=== PATIENT | male | born 1940 | race Caucasian/White ===

== ENCOUNTER 2017-07-02 11:10 | Inpatient (IN) | payer MEDICARE, OTHER ==
[~2017-07-02] VITALS: Ht 167.6 cm; Wt 79.9 kg
[~2017-07-02 11:10] MED LIST: ACET325 PO; ALBU90OI6 INH; ATOR20 PO; BISA10S PR; BUDE6HFA INH; CALCNI; CEPH500 PO; Docusate Sodiu1 EACH PO; GAVILAX17 GM PO; HYDCHL25 PO; Keflex500 MG PO; LEVFLO500 PO; METCAR500 PO; Milk Of Ma400 MG/5 M PO; OMEPRAZOLE CAP 20M; OMEPRAZOLE MAGN20 MG PO; ONDA4 PO; OXYACE5T PO; OXYC1TAB11; OXYC5 PO; PRAV20; PRAV20 PO; Percocet 5-3251 EACH PO; Prilosec Otc20 MG PO; TIOT18 INH
[2017-07-02 12:00] LABS: BASOPHILS ABSOLUTE AUTO 0.02 K/mm3 (0.00-0.23); BASOPHILS PERCENT AUTO 0 % (0-2); EOSINOPHILS ABSOLUTE AUTO 0.01 K/mm3 (0.00-0.68); EOSINOPHILS PERCENT AUTO 0 % (0-6); Hematocrit 40.2 % (37.0-53.0); Hemoglobin 13.9 g/dL (13.5-17.5); IMMATURE GRAN ABSOLUTE AUTO 0.04 K/mm3 (0.00-0.10); IMMATURE GRAN PERCENT AUTO 0 % (0-1); LYMPHOCYTES ABSOLUTE AUTO 1.72 K/mm3 (0.84-5.20); LYMPHOCYTES PERCENT AUTO 11 % (21-46); MONOCYTES ABSOLUTE AUTO 1.83 K/mm3 (0.16-1.47); MONOCYTES PERCENT AUTO 12 % (4-13); Mean Corpuscular HGB Conc 34.6 g/dL (31.5-36.5); Mean Corpuscular Volume 96 fL (80-100); Mean Platelet Volume 9.7 fL (9.1-12.4); NEUTROPHILS ABSOLUTE AUTO 12.17 K/mm3 (1.96-9.15); NEUTROPHILS PERCENT AUTO 77 % (41-73); Platelet Count 272 K/mm3 (150-400); RDW Coefficient Variation 12.7 % (11.7-14.2); RDW Standard Deviation 44.1 fL (35.1-46.3); Red Blood Cell Count 4.21 M/mm3 (4.30-5.90); White Blood Cell Count 15.79 K/mm3 (4.00-11.30)
[2017-07-02] MEDS ORDERED: AMLO5 PO (12:08)
[2017-07-02 12:16] LABS: Alanine Aminotransfer (ALT/SGP 17 U/L (12-78); Albumin, Blood 2.5 g/dL (3.4-5.0); Albumin/Globulin Ratio 0.5 (0.8-1.8); Alk Phos 135 U/L (50-136); Anion Gap 11 mmol/L (6-16); Aspartate Aminotrans (AST/SGOT 16 U/L (12-37); Bilirubin, Total 1.3 mg/dL (0.1-1.0); Blood Urea Nitrogen 25 mg/dL (8-24); Bun/Creatinine Ratio 26.3 (12.0-20.0); CO2, Blood 24 mmol/L (21-32); Chloride, Blood 94 mmol/L (98-108); Creatinine, Blood 0.95 mg/dL (0.60-1.20); Globulin, Blood 5.1 g/dL (2.2-4.0); Glomerular Filtration Rate >60 (60-); Glucose, Blood 119 mg/dL (70-99); Potassium, Blood 4.2 mmol/L (3.5-5.5); Sodium, Blood 129 mmol/L (136-145); Total Protein, Blood 7.6 g/dL (6.4-8.2)
[2017-07-02 14:12] LABS: Source, Urine Clean Catch
[2017-07-02 14:17] LABS: Blood, Urine Neg (Neg); Glucose Qualitative, Urine Neg (Neg); Ketones, Urine 2+ (Neg); Leukocyte Esterase, Urine 1+ (Neg); Nitrite, Urine Neg (Neg); Protein, Urine 2+ (Neg); Urobilinogen, Urine 1+ (Normal)
[2017-07-02 14:31] LABS: Appearance, Urine Hazy (Clear); Bilirubin, Urine 1+ (Neg); Color, Urine Amber (P-Yellow)
[2017-07-02 14:33] LABS: Red Blood Cells, Urine 0-2 /hpf (0-2)
[2017-07-02 14:34] LABS: Bacteria Few /hpf; Squamous Epithelial Cells Few /hpf (Few)
[2017-07-02 18:22] LABS: International Normalized Ratio 1.15
[2017-07-03 05:29] LABS: BASOPHILS ABSOLUTE AUTO 0.01 K/mm3 (0.00-0.23); BASOPHILS PERCENT AUTO 0 % (0-2); EOSINOPHILS ABSOLUTE AUTO 0.01 K/mm3 (0.00-0.68); EOSINOPHILS PERCENT AUTO 0 % (0-6); Hematocrit 35.1 % (37.0-53.0); Hemoglobin 12.1 g/dL (13.5-17.5); IMMATURE GRAN ABSOLUTE AUTO 0.04 K/mm3 (0.00-0.10); IMMATURE GRAN PERCENT AUTO 0 % (0-1); LYMPHOCYTES ABSOLUTE AUTO 1.68 K/mm3 (0.84-5.20); LYMPHOCYTES PERCENT AUTO 14 % (21-46); MONOCYTES ABSOLUTE AUTO 1.64 K/mm3 (0.16-1.47); MONOCYTES PERCENT AUTO 14 % (4-13); Mean Corpuscular HGB 32.9 pg (26.0-34.0); Mean Corpuscular HGB Conc 34.5 g/dL (31.5-36.5); Mean Corpuscular Volume 95 fL (80-100); Mean Platelet Volume 9.9 fL (9.1-12.4); NEUTROPHILS ABSOLUTE AUTO 8.69 K/mm3 (1.96-9.15); NEUTROPHILS PERCENT AUTO 72 % (41-73); Platelet Count 259 K/mm3 (150-400); RDW Coefficient Variation 12.7 % (11.7-14.2); RDW Standard Deviation 43.8 fL (35.1-46.3); Red Blood Cell Count 3.68 M/mm3 (4.30-5.90); White Blood Cell Count 12.07 K/mm3 (4.00-11.30)
[2017-07-03 05:59] LABS: Alanine Aminotransfer (ALT/SGP 14 U/L (12-78); Albumin/Globulin Ratio 0.5 (0.8-1.8); Alk Phos 106 U/L (50-136); Anion Gap 8 mmol/L (6-16); Aspartate Aminotrans (AST/SGOT 18 U/L (12-37); Bilirubin, Total 0.8 mg/dL (0.1-1.0); Blood Urea Nitrogen 19 mg/dL (8-24); Bun/Creatinine Ratio 29.1 (12.0-20.0); CO2, Blood 24 mmol/L (21-32); Chloride, Blood 100 mmol/L (98-108); Creatinine, Blood 0.65 mg/dL (0.60-1.20); Globulin, Blood 4.4 g/dL (2.2-4.0); Glomerular Filtration Rate >60 (60-); Glucose, Blood 101 mg/dL (70-99); Sodium, Blood 132 mmol/L (136-145); Total Protein, Blood 6.4 g/dL (6.4-8.2)
[2017-07-03 18:48] LABS: Vancomycin, Trough 5.8 ug/mL (5.0-10.0)
[2017-07-04 04:56] LABS: BASOPHILS ABSOLUTE AUTO 0.01 K/mm3 (0.00-0.23); BASOPHILS PERCENT AUTO 0 % (0-2); EOSINOPHILS ABSOLUTE AUTO 0.05 K/mm3 (0.00-0.68); EOSINOPHILS PERCENT AUTO 1 % (0-6); Hematocrit 33.7 % (37.0-53.0); Hemoglobin 11.5 g/dL (13.5-17.5); IMMATURE GRAN ABSOLUTE AUTO 0.01 K/mm3 (0.00-0.10); IMMATURE GRAN PERCENT AUTO 0 % (0-1); LYMPHOCYTES ABSOLUTE AUTO 1.61 K/mm3 (0.84-5.20); LYMPHOCYTES PERCENT AUTO 18 % (21-46); MONOCYTES ABSOLUTE AUTO 0.91 K/mm3 (0.16-1.47); MONOCYTES PERCENT AUTO 10 % (4-13); Mean Corpuscular HGB 32.7 pg (26.0-34.0); Mean Corpuscular HGB Conc 34.1 g/dL (31.5-36.5); Mean Corpuscular Volume 96 fL (80-100); Mean Platelet Volume 9.6 fL (9.1-12.4); NEUTROPHILS ABSOLUTE AUTO 6.53 K/mm3 (1.96-9.15); NEUTROPHILS PERCENT AUTO 72 % (41-73); Platelet Count 301 K/mm3 (150-400); RDW Coefficient Variation 12.8 % (11.7-14.2); RDW Standard Deviation 44.5 fL (35.1-46.3); Red Blood Cell Count 3.52 M/mm3 (4.30-5.90); White Blood Cell Count 9.12 K/mm3 (4.00-11.30)
[2017-07-04 05:28] LABS: Alanine Aminotransfer (ALT/SGP 23 U/L (12-78); Albumin, Blood 1.8 g/dL (3.4-5.0); Albumin/Globulin Ratio 0.4 (0.8-1.8); Alk Phos 106 U/L (50-136); Anion Gap 9 mmol/L (6-16); Aspartate Aminotrans (AST/SGOT 30 U/L (12-37); Bilirubin, Total 0.6 mg/dL (0.1-1.0); Blood Urea Nitrogen 16 mg/dL (8-24); Bun/Creatinine Ratio 26.4 (12.0-20.0); CO2, Blood 24 mmol/L (21-32); Calcium, Blood 7.9 mg/dL (8.5-10.1); Chloride, Blood 101 mmol/L (98-108); Creatinine, Blood 0.61 mg/dL (0.60-1.20); Globulin, Blood 4.4 g/dL (2.2-4.0); Glomerular Filtration Rate >60 (60-); Glucose, Blood 99 mg/dL (70-99); Potassium, Blood 3.8 mmol/L (3.5-5.5); Sodium, Blood 134 mmol/L (136-145); Total Protein, Blood 6.2 g/dL (6.4-8.2)
[2017-07-04 05:42] LABS: Uric Acid, Blood 3.7 mg/dL (3.5-7.2)
[2017-07-04 11:45] LABS: Vancomycin, Trough 14.8 ug/mL (5.0-10.0)
[2017-07-05 06:06] LABS: Alanine Aminotransfer (ALT/SGP 30 U/L (12-78); Albumin, Blood 1.9 g/dL (3.4-5.0); Albumin/Globulin Ratio 0.5 (0.8-1.8); Alk Phos 107 U/L (50-136); Anion Gap 8 mmol/L (6-16); Aspartate Aminotrans (AST/SGOT 36 U/L (12-37); Bilirubin, Total 0.4 mg/dL (0.1-1.0); Blood Urea Nitrogen 15 mg/dL (8-24); Bun/Creatinine Ratio 26.5 (12.0-20.0); CO2, Blood 24 mmol/L (21-32); Chloride, Blood 101 mmol/L (98-108); Creatinine, Blood 0.57 mg/dL (0.60-1.20); Globulin, Blood 4.2 g/dL (2.2-4.0); Glomerular Filtration Rate >60 (60-); Glucose, Blood 97 mg/dL (70-99); Potassium, Blood 3.9 mmol/L (3.5-5.5); Sodium, Blood 133 mmol/L (136-145); Total Protein, Blood 6.1 g/dL (6.4-8.2)
[2017-07-06 05:47] LABS: BASOPHILS ABSOLUTE AUTO 0.02 K/mm3 (0.00-0.23); BASOPHILS PERCENT AUTO 0 % (0-2); EOSINOPHILS ABSOLUTE AUTO 0.15 K/mm3 (0.00-0.68); EOSINOPHILS PERCENT AUTO 3 % (0-6); Hematocrit 36.5 % (37.0-53.0); Hemoglobin 12.2 g/dL (13.5-17.5); IMMATURE GRAN PERCENT AUTO 0 % (0-1); LYMPHOCYTES PERCENT AUTO 24 % (21-46); MONOCYTES ABSOLUTE AUTO 0.86 K/mm3 (0.16-1.47); MONOCYTES PERCENT AUTO 17 % (4-13); Mean Corpuscular HGB 32.9 pg (26.0-34.0); Mean Corpuscular HGB Conc 33.4 g/dL (31.5-36.5); Mean Corpuscular Volume 98 fL (80-100); Mean Platelet Volume 9.3 fL (9.1-12.4); NEUTROPHILS ABSOLUTE AUTO 2.83 K/mm3 (1.96-9.15); NEUTROPHILS PERCENT AUTO 56 % (41-73); Platelet Count 332 K/mm3 (150-400); RDW Coefficient Variation 12.8 % (11.7-14.2); RDW Standard Deviation 46.4 fL (35.1-46.3); Red Blood Cell Count 3.71 M/mm3 (4.30-5.90); White Blood Cell Count 5.06 K/mm3 (4.00-11.30)
[2017-07-06 06:16] LABS: Alanine Aminotransfer (ALT/SGP 37 U/L (12-78); Albumin/Globulin Ratio 0.5 (0.8-1.8); Alk Phos 112 U/L (50-136); Anion Gap 8 mmol/L (6-16); Aspartate Aminotrans (AST/SGOT 43 U/L (12-37); Bilirubin, Total 0.4 mg/dL (0.1-1.0); Blood Urea Nitrogen 12 mg/dL (8-24); Bun/Creatinine Ratio 17.9 (12.0-20.0); CO2, Blood 26 mmol/L (21-32); Calcium, Blood 8.4 mg/dL (8.5-10.1); Chloride, Blood 99 mmol/L (98-108); Creatinine, Blood 0.67 mg/dL (0.60-1.20); Globulin, Blood 4.3 g/dL (2.2-4.0); Glomerular Filtration Rate >60 (60-); Glucose, Blood 90 mg/dL (70-99); Potassium, Blood 3.9 mmol/L (3.5-5.5); Sodium, Blood 133 mmol/L (136-145); Total Protein, Blood 6.3 g/dL (6.4-8.2)
[2017-07-09 05:24] LABS: BASOPHILS ABSOLUTE AUTO 0.01 K/mm3 (0.00-0.23); BASOPHILS PERCENT AUTO 0 % (0-2); EOSINOPHILS ABSOLUTE AUTO 0.19 K/mm3 (0.00-0.68); EOSINOPHILS PERCENT AUTO 4 % (0-6); Hematocrit 37.5 % (37.0-53.0); Hemoglobin 12.3 g/dL (13.5-17.5); IMMATURE GRAN ABSOLUTE AUTO 0.02 K/mm3 (0.00-0.10); IMMATURE GRAN PERCENT AUTO 1 % (0-1); LYMPHOCYTES ABSOLUTE AUTO 1.44 K/mm3 (0.84-5.20); LYMPHOCYTES PERCENT AUTO 33 % (21-46); MONOCYTES PERCENT AUTO 14 % (4-13); Mean Corpuscular HGB 32.2 pg (26.0-34.0); Mean Corpuscular HGB Conc 32.8 g/dL (31.5-36.5); Mean Corpuscular Volume 98 fL (80-100); Mean Platelet Volume 9.1 fL (9.1-12.4); NEUTROPHILS ABSOLUTE AUTO 2.15 K/mm3 (1.96-9.15); NEUTROPHILS PERCENT AUTO 49 % (41-73); Platelet Count 334 K/mm3 (150-400); RDW Coefficient Variation 12.9 % (11.7-14.2); RDW Standard Deviation 46.6 fL (35.1-46.3); Red Blood Cell Count 3.82 M/mm3 (4.30-5.90); White Blood Cell Count 4.41 K/mm3 (4.00-11.30)
[2017-07-09 05:59] LABS: Alanine Aminotransfer (ALT/SGP 38 U/L (12-78); Albumin, Blood 2.1 g/dL (3.4-5.0); Albumin/Globulin Ratio 0.5 (0.8-1.8); Alk Phos 102 U/L (50-136); Anion Gap 8 mmol/L (6-16); Aspartate Aminotrans (AST/SGOT 47 U/L (12-37); Bilirubin, Total 0.3 mg/dL (0.1-1.0); Blood Urea Nitrogen 12 mg/dL (8-24); Bun/Creatinine Ratio 19.3 (12.0-20.0); CO2, Blood 26 mmol/L (21-32); Chloride, Blood 101 mmol/L (98-108); Creatinine, Blood 0.62 mg/dL (0.60-1.20); Globulin, Blood 3.9 g/dL (2.2-4.0); Glomerular Filtration Rate >60 (60-); Glucose, Blood 83 mg/dL (70-99); Potassium, Blood 3.6 mmol/L (3.5-5.5); Sodium, Blood 135 mmol/L (136-145)
== END 2017-07-09 13:55 | DRG 871 ==
LOC: ER 11:10 → MEDS 11:11 → ENPENDDIS 07-09 12:54 → MEDS 07-09 13:55
PROVIDERS: Emergency Medicine; Internal Medicine; Internal Medicine Endocrinology, Diabetes & Metabolism
PROC: 3E0234Z Introduction of Serum, Toxoid and Vaccine into Muscle, Percutaneous Approach (ICD-10-PCS; principal; 2017-07-03)
DX: A41.9 Sepsis, unspecified organism (principal); G93.41 Metabolic encephalopathy; S32.431A Displaced fracture of anterior column [iliopubic] of right acetabulum, initial encounter for closed fracture; E86.9 Volume depletion, unspecified; J44.9 Chronic obstructive pulmonary disease, unspecified; N39.0 Urinary tract infection, site not specified; S32.591A Other specified fracture of right pubis, initial encounter for closed fracture; E87.1 Hypo-osmolality and hyponatremia; B34.9 Viral infection, unspecified; Z23 Encounter for immunization; I10 Essential (primary) hypertension; E78.5 Hyperlipidemia, unspecified; K21.9 Gastro-esophageal reflux disease without esophagitis; M81.0 Age-related osteoporosis without current pathological fracture; F17.210 Nicotine dependence, cigarettes, uncomplicated
CPT/HCPCS: 20610; 36415; 71045; 73110; 73562-RT; 80053; 80202; 81001; 83605; 84550; 85025; 85610; 85651; 85730; 86141; 87040; 87070; 87075; 87086; 87205; 89051; 89060; 94640; 94760; 96361; 96372; 96374; 97110; 97163; 97530; 99283; 99285; C1751; G8978; G8979; J0696; J1170; J1650; J3370; J3480; J7030; J7050

== ENCOUNTER 2019-04-13 18:17 | Emergency (ER) | payer MEDICARE, OTHER ==
[~2019-04-13] VITALS: Ht 167.6 cm; Wt 108.9 kg
[~2019-04-13 18:17] MED LIST changes: +AMLO5 PO
[2019-04-13] MEDS ORDERED: Roxicodone5 MG PO (19:42)
== END 2019-04-13 20:10 | disposition home or self-care (01) ==
LOC: ER 18:17
DX: M25.552 Pain in left hip (principal); J44.9 Chronic obstructive pulmonary disease, unspecified; I10 Essential (primary) hypertension; E78.5 Hyperlipidemia, unspecified; F17.210 Nicotine dependence, cigarettes, uncomplicated
CPT/HCPCS: 71046; 73502; 96374; 96376; 99283-25; A9270; J1170

== ENCOUNTER 2019-07-01 06:46 | Day surgery (SDC) | payer MEDICARE, OTHER ==
[~2019-07-01] VITALS: Ht 162.6 cm; Wt 86.8 kg
[~2019-07-01 06:46] MED LIST changes: +ALEN70 PO; +ALFUZOSIN HCL10 MG PO; +ALLERCLEAR D-11 EACH PO; +ASTHALIN INH; +BROMELAINS500 MG PO; +BUDESONIDE NEB; +Brovana15 MCG/2 M INH; +Roxicodone5 MG PO; +[UNRECOGNIZED DRUG - OTHER] INH
--- NOTE | 2019-07-01 07:34 | NUR ---
History, Chart, Medications and Allergies reviewed before start of procedure. Patient confirms NPO status since midnight except for black coffee at 0430 this morning.
--- NOTE | 2019-07-01 07:36 | NUR ---
Patient States Post-Procedure ride home has been arranged with his .
--- NOTE | 2019-07-01 08:03 | NUR ---
0755- LUNGS DIMINISHED T/O WITH EXP. WHEEZING AUSCULTATED T/O. DR. BONILLA NOTIFIED, ORDER FOR DUONEB IN PREOP.
--- NOTE | 2019-07-01 11:06 | NUR ---
Patient up to Ambulate independently. Gait steady. History, Chart, Medications and Allergies reviewed before start of procedure. Discharge instructions reviewed with patient. Patient verbalizes understanding. Copy given to patient to take home. Discharged via wheelchair to private car for ride home. ABDOMINAL BLINDER PLACED
== END 2019-07-01 22:42 | disposition home or self-care (01) ==
LOC: ORSCMMR 06:46 → ORD 08:30 → ORSCMMR 22:42
PROVIDERS: Surgery
PROC: 0WUF0JZ Supplement Abdominal Wall with Synthetic Substitute, Open Approach (ICD-10-PCS; principal; 2019-07-01 08:30)
DX: K42.9 Umbilical hernia without obstruction or gangrene (principal); I10 Essential (primary) hypertension; J44.9 Chronic obstructive pulmonary disease, unspecified; Z87.891 Personal history of nicotine dependence; Z99.81 Dependence on supplemental oxygen; Z79.899 Other long term (current) drug therapy
CPT/HCPCS: C1781; J0690; J1100; J2250; J2370; J2405; J2704; J3010; J7120

== ENCOUNTER → 2019-11-11 | Outpatient (CLI) | payer MEDICARE, OTHER | END | disposition home or self-care (01) | LOC: LAB SHORT 15:42 → PLD 15:42 | DX: L72.0 Epidermal cyst (principal) | CPT/HCPCS: 88304 ==

== ENCOUNTER → 2021-05-06 | Outpatient (CLI) | payer MEDICARE, OTHER ==
[~2021-05-06] MED LIST changes: +ALBU90OI INH; +Prednisone20 MG PO
== END | disposition home or self-care (01) ==
LOC: LAB SHORT 15:57 → PLD 15:57
DX: M67.449 Ganglion, unspecified hand (principal)
CPT/HCPCS: 88304

== ENCOUNTER → 2022-01-30 | Outpatient (CLI) | payer MEDICARE | END | disposition home or self-care (01) | LOC: LAB SHORT 08:07 → PLD 08:07 | DX: D22.5 Melanocytic nevi of trunk (principal); L82.1 Other seborrheic keratosis | CPT/HCPCS: 88305 ==

== ENCOUNTER 2022-06-30 19:56 | Inpatient (IN) | payer BC ==
[~2022-06-30] VITALS: Ht 162.6 cm; Wt 84.2 kg
[2022-06-30 20:17] LABS: BASOPHILS ABSOLUTE AUTO 0.03 K/mm3 (0.00-0.23); BASOPHILS PERCENT AUTO 0 % (0-2); EOSINOPHILS ABSOLUTE AUTO 0.58 K/mm3 (0.00-0.68); EOSINOPHILS PERCENT AUTO 7 % (0-6); Hematocrit 40.1 % (37.0-53.0); Hemoglobin 12.9 g/dL (13.5-17.5); IMMATURE GRAN ABSOLUTE AUTO 0.01 K/mm3 (0.00-0.10); IMMATURE GRAN PERCENT AUTO 0 % (0-1); LYMPHOCYTES ABSOLUTE AUTO 1.94 K/mm3 (0.84-5.20); LYMPHOCYTES PERCENT AUTO 25 % (21-46); MONOCYTES ABSOLUTE AUTO 0.72 K/mm3 (0.16-1.47); MONOCYTES PERCENT AUTO 9 % (4-13); Mean Corpuscular HGB 32.7 pg (26.0-34.0); Mean Corpuscular HGB Conc 32.2 g/dL (31.5-36.5); Mean Corpuscular Volume 102 fL (80-100); Mean Platelet Volume 9.8 fL (9.1-12.4); NEUTROPHILS ABSOLUTE AUTO 4.55 K/mm3 (1.96-9.15); NEUTROPHILS PERCENT AUTO 58 % (41-73); Platelet Count 218 K/mm3 (150-400); RDW Coefficient Variation 12.1 % (11.7-14.2); RDW Standard Deviation 45.4 fL (35.1-46.3); Red Blood Cell Count 3.95 M/mm3 (4.30-5.90); White Blood Cell Count 7.83 K/mm3 (4.00-11.30)
[2022-06-30 20:53] LABS: Alanine Aminotransfer (ALT/SGP 36 U/L (12-78); Albumin, Blood 3.1 g/dL (3.4-5.0); Albumin/Globulin Ratio 0.8 (0.8-1.8); Alk Phos 84 U/L (50-136); Anion Gap Unable to Calculate mmol/L (6-16); Aspartate Aminotrans (AST/SGOT 23 U/L (12-37); Bilirubin, Total 0.2 mg/dL (0.1-1.0); Blood Urea Nitrogen 15 mg/dL (8-24); Bun/Creatinine Ratio 20.4 (12.0-20.0); CO2, Blood 33 mmol/L (21-32); Calcium, Blood 8.3 mg/dL (8.5-10.1); Chloride, Blood 108 mmol/L (98-108); Creatinine, Blood 0.74 mg/dL (0.60-1.20); Globulin, Blood 3.9 g/dL (2.2-4.0); Glomerular Filtration Rate 92 (60-); Glucose, Blood 113 mg/dL (70-99); Sodium, Blood 137 mmol/L (136-145)
[2022-06-30 22:22] LABS: Base Excess Venous 4.1 mmol/L; Bicarbonate Venous 26.5 mmol/L (24.0-30.0); PCO2 Venous 64.6 mmHg (38-42); pH Blood Venous 7.29 (7.34-7.37)
[2022-07-01 00:27] LABS: Influenza A, PCR NEGATIVE (NEGATIVE); Influenza B, PCR NEGATIVE (NEGATIVE); Resp Syncytial Virus, PCR NEGATIVE (NEGATIVE); SARS-Cov-2 (COVID-19) PCR, MMC NEGATIVE (NEGATIVE)
[2022-07-01 02:30] LABS: PCO2 Venous 65.3 mmHg (38-42); pH Blood Venous 7.29 (7.34-7.37)
[2022-07-01 02:31] LABS: Base Excess Venous 4.7 mmol/L; Bicarbonate Venous 26.5 mmol/L (24.0-30.0); PO2 Venous 46.1 mmHg (38-42)
--- NOTE | 2022-07-01 05:05 | NUR ---
Shift Summary Pt arrived from the ED at 0330 with a dx of COPD exacerbation. PT is AOx4, independent in the room, and on 4L O2. Baseline O2 is 2-6L depending on exertion. Pt has a productive, hacking cough. Head of the bed is at 45 degrees to facilitate easier breathing. Pt hypertensive, last BP 148/88. Easily angered, but calms quickly and even appologized for being bristly. VSS, no acute events.
[2022-07-01 05:51] LABS: BASOPHILS ABSOLUTE AUTO 0.02 K/mm3 (0.00-0.23); BASOPHILS PERCENT AUTO 0 % (0-2); EOSINOPHILS ABSOLUTE AUTO 0.01 K/mm3 (0.00-0.68); EOSINOPHILS PERCENT AUTO 0 % (0-6); Hematocrit 42.1 % (37.0-53.0); Hemoglobin 13.6 g/dL (13.5-17.5); IMMATURE GRAN ABSOLUTE AUTO 0.02 K/mm3 (0.00-0.10); IMMATURE GRAN PERCENT AUTO 0 % (0-1); LYMPHOCYTES PERCENT AUTO 11 % (21-46); MONOCYTES ABSOLUTE AUTO 0.05 K/mm3 (0.16-1.47); MONOCYTES PERCENT AUTO 1 % (4-13); Mean Corpuscular HGB 32.4 pg (26.0-34.0); Mean Corpuscular HGB Conc 32.3 g/dL (31.5-36.5); Mean Corpuscular Volume 100 fL (80-100); Mean Platelet Volume 9.8 fL (9.1-12.4); NEUTROPHILS ABSOLUTE AUTO 4.72 K/mm3 (1.96-9.15); NEUTROPHILS PERCENT AUTO 87 % (41-73); Platelet Count 214 K/mm3 (150-400); RDW Standard Deviation 44.5 fL (35.1-46.3); White Blood Cell Count 5.42 K/mm3 (4.00-11.30)
[2022-07-01 06:11] LABS: Bun/Creatinine Ratio 15.4 (12.0-20.0); Calcium, Blood 8.8 mg/dL (8.5-10.1); Creatinine, Blood 0.78 mg/dL (0.60-1.20); Potassium, Blood 4.7 mmol/L (3.5-5.5)
--- NOTE | 2022-07-01 17:55 | NUR ---
SHIFT SUMMARY: PATIENT A&OX4. CALM, PLEASANT AND COOPERATIVE c CARE. USES CALL LIGHT APPROPRIATELY AND ABLE TO ADVOCATE FOR HIS NEEDS. DENIES CP/CHEST DISCOMFORT. PATIENT WAS ON TELE, SR IN THE HIGH 80'S BPM PER [facility]ENTER ASSISTANTOMAYRA MURPHY. TELE WAS DC'D TODAY PER ORDER. PATIENT ON O2 4L VIA NC c SPO2 RANGES 94-97% T/O SHIFT. PER PATIENT HE WEARS O2 AT HOME 4L VIA NC AT BASELINE. REPORTS SOB c ACTIVITIES. LUNGS COARSE AND EXP WHEEZES T/O TO AUSCULTATION. RECEIVED SCHEDULED SOLUMEDROL. BREATHING TX ADMINISTERED BY RT. PATIENT REPORTS OF PRODUCTIVE COUGH AND REQUESTED FOR COUGH MEDICINE. CALLED DR. TRUONG FOR PATIENT REQUEST. RECEIVED ORDER FOR TESSALON 100 MG TID. MEDICATED X1 c TESSALON AT AROUND 1400. PATIENT HAD SHOWER AND TOLERATED WELL. PATIENT CONTINENT OF URINE AND STOOL. AMBULATES TO BATHROOM AND BACK IN BED INDEPENDENLY. VITAL SIGNS REVIEWED. IV TO L AC SALINE LOCKED. CALL LIGHT IN REACH.
--- NOTE | 2022-07-02 04:50 | NUR ---
A/OX4; CALM AND COOPERATIVE. ADMITTED FOR COPD EXACERBATION; CURRENTLY ON 4L NC (HOME BASELINE IS 2-6L PRN PER PATIENT), SPO2 MID 90s, PRODUCTIVE COUGH. IND TO BR; SOB WITH EXERTION. DENIES PAIN AT THIS TIME. FLUIDS ENCOURAGED. SLEEP PROMOTED. CALL LIGHT IN REACH; ENCOURAGED TO MAKE NEEDS KNOWN.
--- NOTE | 2022-07-02 17:40 | NUR ---
SHIFT SUMMARY NO ACUTE CHANGES DURING SHIFT. PT ALERT AND ORIENTED, CALLS APPROPRIATELY. PT DOWN TO 3L NC, TOLERATING. PT WITH PRODUCTIVE COUGH, SCHEDULED MEDICATIONS ADMINISTERED, MONITOR FOR EFFECTIVENESS. PT INDEPENDENT IN ROOM. NO C/O PAIN. WILL CONTINUE TO MONITOR. CALL LIGHT WITHIN REACH.
--- NOTE | 2022-07-03 03:35 | NUR ---
SHIFT SUMMARY: NO SIGNIFICANT CHANGES THROUGHOUT THE NIGHT. PATIENT IS A&OX4. HE IS ON 3L NC OF OXYGEN WHICH IS BASELINE AT HOME IS BETWEEN 1-2L NC OF OXYGEN. PATIENT DENIES SOB OR CHEST PAIN AT THIS TIME. PATIENT DOES HAVE A PRODUCTIVE COUGH AND HAS BEEN GIVEN TESSALON TO HELP RELIEVE THE CONSTANT COUGHING. PATIENT REPORTS "I THINK IT HAS HELPED DECREASE MY COUGHING FITS". PATIENT IS INDEP. IN THE ROOM. HE IS TOLERATING PO INTAKE AND IS VOIDING. CALLS APPROPRIATELY. PATIENT IS LAYING IN BED WITH CALL LIGHT IN REACH.
[2022-07-03 05:10] LABS: BASOPHILS ABSOLUTE AUTO 0.01 K/mm3 (0.00-0.23); BASOPHILS PERCENT AUTO 0 % (0-2); EOSINOPHILS PERCENT AUTO 0 % (0-6); Hematocrit 37.8 % (37.0-53.0); Hemoglobin 12.4 g/dL (13.5-17.5); IMMATURE GRAN ABSOLUTE AUTO 0.02 K/mm3 (0.00-0.10); IMMATURE GRAN PERCENT AUTO 0 % (0-1); LYMPHOCYTES ABSOLUTE AUTO 2.25 K/mm3 (0.84-5.20); LYMPHOCYTES PERCENT AUTO 19 % (21-46); MONOCYTES PERCENT AUTO 9 % (4-13); Mean Corpuscular HGB 32.4 pg (26.0-34.0); Mean Corpuscular HGB Conc 32.8 g/dL (31.5-36.5); Mean Corpuscular Volume 99 fL (80-100); NEUTROPHILS ABSOLUTE AUTO 8.64 K/mm3 (1.96-9.15); NEUTROPHILS PERCENT AUTO 72 % (41-73); Platelet Count 221 K/mm3 (150-400); RDW Coefficient Variation 12.1 % (11.7-14.2); RDW Standard Deviation 43.8 fL (35.1-46.3); Red Blood Cell Count 3.83 M/mm3 (4.30-5.90); White Blood Cell Count 12.02 K/mm3 (4.00-11.30)
[2022-07-03 06:35] LABS: Albumin, Blood 3.1 g/dL (3.4-5.0); Albumin/Globulin Ratio 0.9 (0.8-1.8); Bilirubin, Total 0.3 mg/dL (0.1-1.0); Bun/Creatinine Ratio 20.8 (12.0-20.0); Calcium, Blood 8.6 mg/dL (8.5-10.1); Creatinine, Blood 0.87 mg/dL (0.60-1.20); Globulin, Blood 3.3 g/dL (2.2-4.0); Potassium, Blood 3.8 mmol/L (3.5-5.5); Total Protein, Blood 6.4 g/dL (6.4-8.2)
--- NOTE | 2022-07-03 18:13 | NUR ---
SHIFT SUMMARY; PATIENT HAD NO ACUTE CHANGES IN CONDITION NOTED DURING DAY. HE REMAINS ON MOSTLY BEDREST. ONLY GETTING UP INDEPENDANTLY TO GO TO THE BATHROOM. HE USES CALL LIGHT APPROPRIATELY AND HAS PLEASANT AFFECT. HE IS NOTED TO HAVE EXPIRATORY WHEEZES IN UPPER AND LOWER LOBES OF HIS LUNGS. HE REMAINS ON 3 LITERS NASAL CANNULA. PATIENT SAYS HE PLANS ON GOING HOME TOMORROW EVEN IF HE IS STILL NOT ABLE TO AMBULATE WITHOUT GREAT WEAKNESS AND SHORTNESS OF BREATH.HIS VITAL SIGNS ARE WNL.
--- NOTE | 2022-07-04 03:53 | NUR ---
Patient resting in room, no complaints of pain or discomfort.
--- NOTE | 2022-07-04 11:17 | NUR ---
ShiFT Summary Pt alertxorientedx3, but forgetful. Pt made aware that he will be discharged today. Pt voices no cocerns. Pt uses [facility] for his pharmacy. Will fax orders over to the pharmacy. Pt has all belongings together. Will call once ready to discharge.
[2022-07-04] MEDS ORDERED: FLUTICASONE-SA1 EAC1 INH (11:46)
[2022-07-04] MEDS ORDERED: GUAI600T33 PO (11:47)
[2022-07-04] MEDS ORDERED: SPIRIVA RESPIMAT4 G3 INH (11:51)
[2022-07-04] MEDS ORDERED: AZIT250 PO (11:52)
[2022-07-04] MEDS ORDERED: Prednisone10 MG PO (11:54)
--- NOTE | 2022-07-04 13:33 | NUR ---
Pt discharged at 1320. Pt went home with all belongings. IV removed. in lobby with patient oxygen.
== END 2022-07-04 13:07 | disposition home or self-care (01) | DRG 189 ==
LOC: ER 19:56 → MEDS 07-01 02:42
PROVIDERS: Emergency Medicine; Family Medicine; Internal Medicine; ADMIT Internal Medicine
DX: J96.21 Acute and chronic respiratory failure with hypoxia (principal); M80.08XA Age-related osteoporosis with current pathological fracture, vertebra(e), initial encounter for fracture; J44.1 Chronic obstructive pulmonary disease with (acute) exacerbation; J96.22 Acute and chronic respiratory failure with hypercapnia; D64.9 Anemia, unspecified; K21.9 Gastro-esophageal reflux disease without esophagitis; I10 Essential (primary) hypertension; E78.5 Hyperlipidemia, unspecified; N40.0 Benign prostatic hyperplasia without lower urinary tract symptoms; I70.0 Atherosclerosis of aorta; Z96.651 Presence of right artificial knee joint; Z20.822 Contact with and (suspected) exposure to COVID-19; Z88.5 Allergy status to narcotic agent; Z88.8 Allergy status to other drugs, medicaments and biological substances; Z79.899 Other long term (current) drug therapy; Z79.51 Long term (current) use of inhaled steroids; Z98.49 Cataract extraction status, unspecified eye; Z89.029 Acquired absence of unspecified finger(s); Z87.891 Personal history of nicotine dependence
CPT/HCPCS: 0241U; 36415; 36416; 71046; 71260; 80048; 80053; 82607; 82746; 82803; 83880; 84145; 84484; 85025; 93005; 93010; 94640; 94664; 94760; 94762; 96365-59; 96367-59; 96375-59; 99285-25; A9270; J0456; J0696; J1650; J2930; J3475; J7050; J7512; Q9967

== ENCOUNTER 2024-01-04 09:18 | Emergency (ER) | payer OTHER ==
[~2024-01-04] VITALS: Ht 162.6 cm; Wt 72.6 kg
[~2024-01-04 09:18] MED LIST changes: +ALFU10 PO; +AZIT250 PO; +BUDESONIDE1 MG/2 M1 INH; +FLUTICASONE-SA1 EAC1 INH; +GUAI600T33 PO; +Hydrocortisone30 G4 TOP; +LIDO700A20 TOP; +POTCHL20ER PO; +Prednisone10 MG PO; +ROFL500T PO; +ROSU10TA PO; +SPIRIVA RESPIMAT4 G3 INH; +SYMBICORT 160-4.6 GM INH
[2024-01-04] MEDS ORDERED: Ondansetron HCl 2 MG / ML 2ML Vial IV ONE (09:30)
[2024-01-04] MEDS ORDERED: Morphine Sulfate 4 MG/1 ML Injection IV ONE (09:30)
[2024-01-04] MEDS ORDERED: TRAM50 PO (09:31)
[2024-01-04] MEDS ORDERED: Dexamethasone Sod Phos 10 MG/ML 1ML VIAL IV ONE (12:10)
[2024-01-04] MEDS ORDERED: METPRE4DP PO (14:18)
[2024-01-04 14:36] VITALS: BP 135/85
== END 2024-01-04 14:36 | disposition home or self-care (01) ==
LOC: ER 09:18
DX: M54.16 Radiculopathy, lumbar region (principal); M17.11 Unilateral primary osteoarthritis, right knee; J44.9 Chronic obstructive pulmonary disease, unspecified; I10 Essential (primary) hypertension; E78.5 Hyperlipidemia, unspecified; K21.9 Gastro-esophageal reflux disease without esophagitis; F17.210 Nicotine dependence, cigarettes, uncomplicated; Z79.899 Other long term (current) drug therapy; Z88.5 Allergy status to narcotic agent; Z88.8 Allergy status to other drugs, medicaments and biological substances
CPT/HCPCS: 72148; 73562-RT; J1100; J2270; J2405

== ENCOUNTER 2024-01-10 14:48 | Emergency (ER) | payer OTHER ==
[~2024-01-10] VITALS: Ht 162.6 cm; Wt 81.7 kg
[~2024-01-10 14:48] MED LIST changes: +METPRE4DP PO; +TRAM50 PO
[2024-01-10 15:00] VITALS: BP 134/84
[2024-01-10 15:29] LABS: Source, Urine Clean Catch
[2024-01-10 16:05] LABS: Appearance, Urine Clear (Clear); Bilirubin, Urine Neg (Neg); Blood, Urine Neg (Neg); Color, Urine Yellow (P-Yellow); Glucose Qualitative, Urine Neg (Neg); Ketones, Urine Neg (Neg); Leukocyte Esterase, Urine Neg (Neg); Nitrite, Urine Neg (Neg); Protein, Urine Neg (Neg); Specific Gravity, Urine 1.015 (1.003-1.022); Urobilinogen, Urine NORM (Normal)
[2024-01-10] MEDS ORDERED: Flomax0.4 MG PO (17:33)
== END 2024-01-10 17:39 | disposition home or self-care (01) ==
LOC: ER 14:48
PROVIDERS: Physician Assistant
DX: N40.0 Benign prostatic hyperplasia without lower urinary tract symptoms (principal); I10 Essential (primary) hypertension; J44.9 Chronic obstructive pulmonary disease, unspecified; E78.5 Hyperlipidemia, unspecified; K21.9 Gastro-esophageal reflux disease without esophagitis; F17.210 Nicotine dependence, cigarettes, uncomplicated; Z79.899 Other long term (current) drug therapy; Z88.5 Allergy status to narcotic agent; Z88.8 Allergy status to other drugs, medicaments and biological substances
CPT/HCPCS: 51798; 81003; 99283-25

== ENCOUNTER 2024-03-26 00:04 | Emergency (ER) | payer OTHER ==
[~2024-03-26] VITALS: Ht 165.1 cm; Wt 69.0 kg
[~2024-03-26 00:04] MED LIST changes: +Flomax0.4 MG PO
[2024-03-26 00:29] LABS: BASOPHILS ABSOLUTE AUTO 0.03 K/mm3 (0.00-0.23); BASOPHILS PERCENT AUTO 0 % (0-2); EOSINOPHILS ABSOLUTE AUTO 0.35 K/mm3 (0.00-0.68); EOSINOPHILS PERCENT AUTO 4 % (0-6); Hematocrit 37.9 % (37.0-53.0); Hemoglobin 12.9 g/dL (13.5-17.5); IMMATURE GRAN ABSOLUTE AUTO 0.02 K/mm3 (0.00-0.10); IMMATURE GRAN PERCENT AUTO 0 % (0-1); LYMPHOCYTES ABSOLUTE AUTO 2.49 K/mm3 (0.84-5.20); LYMPHOCYTES PERCENT AUTO 28 % (21-46); MONOCYTES PERCENT AUTO 8 % (4-13); Mean Corpuscular HGB 32.4 pg (26.0-34.0); Mean Corpuscular Volume 95 fL (80-100); Mean Platelet Volume 8.5 fL (9.1-12.4); NEUTROPHILS ABSOLUTE AUTO 5.29 K/mm3 (1.96-9.15); NEUTROPHILS PERCENT AUTO 60 % (41-73); Platelet Count 231 K/mm3 (150-400); RDW Standard Deviation 45.2 fL (35.1-46.3); Red Blood Cell Count 3.98 M/mm3 (4.30-5.90); White Blood Cell Count 8.88 K/mm3 (4.00-11.30)
[2024-03-26 00:44] LABS: International Normalized Ratio 0.98; Prothrombin Time Results 10.5 Sec (9.7-11.5)
[2024-03-26 01:15] LABS: Albumin, Blood 2.8 g/dL (3.4-5.0); Albumin/Globulin Ratio 0.7 (0.8-1.8); Bilirubin, Total 0.3 mg/dL (0.1-1.0); Bun/Creatinine Ratio 13.5 (12.0-20.0); Calcium, Blood 8.3 mg/dL (8.5-10.1); Creatinine, Blood 0.74 mg/dL (0.60-1.20); Globulin, Blood 4.1 g/dL (2.2-4.0); Potassium, Blood 3.7 mmol/L (3.5-5.5); Total Protein, Blood 6.9 g/dL (6.4-8.2)
[2024-03-26] MEDS ORDERED: FentaNYL Citrate 50 MCG/ML 2 ML Injection IV PRN (02:15)
[2024-03-26 03:15] LABS: Hematocrit 36.4 % (37.0-53.0); Hemoglobin 12.3 g/dL (13.5-17.5)
[2024-03-26 06:15] VITALS: BP 137/89
== END 2024-03-26 06:16 | disposition home or self-care (01) ==
LOC: ER 00:04
PROVIDERS: Emergency Medicine
DX: K52.9 Noninfective gastroenteritis and colitis, unspecified (principal); K92.1 Melena; D64.9 Anemia, unspecified; J44.9 Chronic obstructive pulmonary disease, unspecified; K21.9 Gastro-esophageal reflux disease without esophagitis; E78.5 Hyperlipidemia, unspecified; I10 Essential (primary) hypertension; F17.210 Nicotine dependence, cigarettes, uncomplicated; Z79.899 Other long term (current) drug therapy; Z88.5 Allergy status to narcotic agent; Z88.1 Allergy status to other antibiotic agents; Z88.8 Allergy status to other drugs, medicaments and biological substances
CPT/HCPCS: 74177; 80053; 85014; 85018; 85025; 85610; 85730; 93005; 93010; 99285-25; Q9967

== ENCOUNTER 2024-03-27 15:22 | Observation (INO) | payer OTHER ==
[~2024-03-27] VITALS: Ht 162.6 cm; Wt 69.0 kg
[2024-03-27] MEDS ORDERED: NS 1,000 ML IV SCH (15:45)
[2024-03-27] MEDS ORDERED: Ketorolac Tromethamine 15mg Vial IV ONE (15:45)
[2024-03-27] MEDS ORDERED: Milk 150ML/Molasses 150ML (300ML Total) PR ONE (15:45)
[2024-03-27] MEDS ORDERED: Ondansetron HCl 2 MG / ML 2ML Vial IV ONE ×2 (15:45→16:00)
[2024-03-27 15:48] LABS: BASOPHILS ABSOLUTE AUTO 0.02 K/mm3 (0.00-0.23); BASOPHILS PERCENT AUTO 0 % (0-2); EOSINOPHILS ABSOLUTE AUTO 0.63 K/mm3 (0.00-0.68); EOSINOPHILS PERCENT AUTO 8 % (0-6); Hematocrit 38.4 % (37.0-53.0); Hemoglobin 12.8 g/dL (13.5-17.5); IMMATURE GRAN ABSOLUTE AUTO 0.03 K/mm3 (0.00-0.10); IMMATURE GRAN PERCENT AUTO 0 % (0-1); LYMPHOCYTES ABSOLUTE AUTO 2.98 K/mm3 (0.84-5.20); LYMPHOCYTES PERCENT AUTO 35 % (21-46); MONOCYTES ABSOLUTE AUTO 0.75 K/mm3 (0.16-1.47); MONOCYTES PERCENT AUTO 9 % (4-13); Mean Corpuscular HGB 32.2 pg (26.0-34.0); Mean Corpuscular HGB Conc 33.3 g/dL (31.5-36.5); Mean Corpuscular Volume 97 fL (80-100); Mean Platelet Volume 8.7 fL (9.1-12.4); NEUTROPHILS ABSOLUTE AUTO 4.04 K/mm3 (1.96-9.15); NEUTROPHILS PERCENT AUTO 48 % (41-73); Platelet Count 236 K/mm3 (150-400); RDW Coefficient Variation 13.2 % (11.7-14.2); RDW Standard Deviation 46.9 fL (35.1-46.3); Red Blood Cell Count 3.98 M/mm3 (4.30-5.90); White Blood Cell Count 8.45 K/mm3 (4.00-11.30)
[2024-03-27] MEDS ORDERED: Morphine Sulfate 4 MG/1 ML Injection IV ONE (16:00)
[2024-03-27 16:10] LABS: Albumin, Blood 2.9 g/dL (3.4-5.0); Albumin/Globulin Ratio 0.7 (0.8-1.8); Bilirubin, Total 0.3 mg/dL (0.1-1.0); Bun/Creatinine Ratio 18.9 (12.0-20.0); Calcium, Blood 8.8 mg/dL (8.5-10.1); Creatinine, Blood 0.69 mg/dL (0.60-1.20); Potassium, Blood 4.1 mmol/L (3.5-5.5); Total Protein, Blood 6.9 g/dL (6.4-8.2)
[2024-03-27 16:30] LABS: International Normalized Ratio 0.98; Prothrombin Time Results 10.5 Sec (9.7-11.5)
[2024-03-27 17:33] LABS: Source, Urine Clean Catch
[2024-03-27 17:41] LABS: Appearance, Urine Clear (Clear); Bilirubin, Urine Neg (Neg); Blood, Urine Neg (Neg); Color, Urine Yellow (P-Yellow); Glucose Qualitative, Urine Neg (Neg); Ketones, Urine Neg (Neg); Leukocyte Esterase, Urine Neg (Neg); Nitrite, Urine Neg (Neg); Protein, Urine Neg (Neg); Urobilinogen, Urine NORM (Normal)
[2024-03-27] MEDS ORDERED: MetroNIDAZOLE 500MG/NS 100 ml 100 ML IV ONE (18:50)
[2024-03-27] MEDS ORDERED: Ondansetron HCl 2 MG / ML 2ML Vial IV PRN (19:55)
[2024-03-27] MEDS ORDERED: Tiotropium Bromide 2.5 MCG/ACT MIST INHAL (10 ACT/4 GM) INH SCH (19:55)
[2024-03-27] MEDS ORDERED: Lactated Ringer's 1,000 ML IV SCH (19:55)
[2024-03-27] MEDS ORDERED: Acetaminophen 325 MG TABLET PO PRN (19:55)
[2024-03-27] MEDS ORDERED: Ipratropium/Albuterol SulF 2.5-0.5MG/3 ML Amp INH SCH (19:55)
[2024-03-27] MEDS ORDERED: FLU VACC TS2024-25(6MOS UP)/PF 45 MCG/0.5 ML SYRINGE IM SCH (19:55)
[2024-03-27] MEDS ORDERED: Albuterol 2.5 MG/3 ML VIAL INH PRN (20:00)
[2024-03-27] MEDS ORDERED: OxyCODONE HCL 5 MG TAB PO PRN (20:00)
[2024-03-27] MEDS ORDERED: Lactobacil 2-S.Thermo-Bifido 1 1 Cap PO SCH (21:00)
[2024-03-27] MEDS ORDERED: CefTRIAXone Sodium 1,000 MG in NS 100 ML IV SCH (21:00)
[2024-03-27 22:13] VITALS: BP 125/88
[2024-03-28] MEDS ORDERED: ROSUVASTATIN CA10 MG PO (00:14)
[2024-03-28] MEDS ORDERED: ONDA4ODT MM (00:14)
[2024-03-28] MEDS ORDERED: AMOX-CLAV 875-1 EAC5 PO (00:21)
[2024-03-28] MEDS ORDERED: MetroNIDAZOLE 500MG/NS 100 ml 100 ML IV SCH (02:00)
[2024-03-28 02:37] VITALS: BP 139/85
--- NOTE | 2024-03-28 05:49 | NUR ---
PT ARRIVED TO FLOOR AROUND 2200, SBA FOR TRANSFERS. A/OX4. LR RUNNING AT 100ML/HR, RECEIVING IV ABX. RECTAL BLEEDING WITH BOWEL MOVEMENTS. PT HAD VERY SMALL BM - ABOUT 5 SMALL PEBLE LOOKING STOOLS WITH SOME BRIGHT RED BLOOD. H&H WNL. GI CONSULT ORDERED.
[2024-03-28 06:21] LABS: Hematocrit 36.9 % (37.0-53.0); Hemoglobin 12.2 g/dL (13.5-17.5); Mean Corpuscular HGB 32.1 pg (26.0-34.0); Mean Corpuscular HGB Conc 33.1 g/dL (31.5-36.5); Mean Corpuscular Volume 97 fL (80-100); Mean Platelet Volume 8.7 fL (9.1-12.4); Platelet Count 222 K/mm3 (150-400); RDW Coefficient Variation 12.9 % (11.7-14.2); White Blood Cell Count 8.23 K/mm3 (4.00-11.30)
[2024-03-28 06:59] LABS: Bun/Creatinine Ratio 12.6 (12.0-20.0); Calcium, Blood 8.4 mg/dL (8.5-10.1); Creatinine, Blood 0.71 mg/dL (0.60-1.20); Magnesium, Blood 1.6 mg/dL (1.6-2.4); Potassium, Blood 3.9 mmol/L (3.5-5.5)
[2024-03-28 07:55] VITALS: BP 123/82
[2024-03-28] MEDS ORDERED: NS 250 ML IV PRN (08:10)
[2024-03-28] MEDS ORDERED: Tamsulosin HCl 0.4 MG Cap PO SCH (09:00)
[2024-03-28] MEDS ORDERED: Pantoprazole Sodium 20 MG Tab PO SCH (11:00)
[2024-03-28 15:09] VITALS: BP 126/85
--- NOTE | 2024-03-28 18:37 | NUR ---
SHIFT SUMMARY PT CONT LEVEL OF CARE. PT IS A&OX4 AND SBA. PT MAKES NEEDS KNOWN AND CALLS APPROPRIATE. PT DIET WAS ADVANCED TO CLEAR LIQUID THIS SHIFT AND PT HAS TOLERATED WELL.
--- NOTE | 2024-03-29 05:09 | NUR ---
MANAGER PRODUCT SUPPORT SUMMARY PT A/OX4. ABLE TO MAKE NEEDS KNOWN. PT MOSTLY COOPERATIVE WITH CARE BUT ABRASIVE WITH STAFF AT TIMES. NO ACUTE CHANGES. PT CONTINUES TO TOLERATE CLEAR LIQUIDS, HOWEVER HAS MINIMAL INTAKE THIS SHIFT. CALL LIGHT ACCESSIBLE.
[2024-03-29 05:56] VITALS: BP 129/79
[2024-03-29 06:57] LABS: BASOPHILS ABSOLUTE AUTO 0.02 K/mm3 (0.00-0.23); BASOPHILS PERCENT AUTO 0 % (0-2); EOSINOPHILS ABSOLUTE AUTO 0.57 K/mm3 (0.00-0.68); EOSINOPHILS PERCENT AUTO 6 % (0-6); Hematocrit 37.8 % (37.0-53.0); Hemoglobin 12.6 g/dL (13.5-17.5); IMMATURE GRAN ABSOLUTE AUTO 0.02 K/mm3 (0.00-0.10); IMMATURE GRAN PERCENT AUTO 0 % (0-1); LYMPHOCYTES ABSOLUTE AUTO 2.91 K/mm3 (0.84-5.20); LYMPHOCYTES PERCENT AUTO 30 % (21-46); MONOCYTES ABSOLUTE AUTO 0.92 K/mm3 (0.16-1.47); MONOCYTES PERCENT AUTO 9 % (4-13); Mean Corpuscular HGB Conc 33.3 g/dL (31.5-36.5); Mean Corpuscular Volume 96 fL (80-100); Mean Platelet Volume 8.9 fL (9.1-12.4); NEUTROPHILS ABSOLUTE AUTO 5.41 K/mm3 (1.96-9.15); NEUTROPHILS PERCENT AUTO 55 % (41-73); Platelet Count 226 K/mm3 (150-400); RDW Coefficient Variation 12.8 % (11.7-14.2); RDW Standard Deviation 45.1 fL (35.1-46.3); Red Blood Cell Count 3.94 M/mm3 (4.30-5.90); White Blood Cell Count 9.85 K/mm3 (4.00-11.30)
[2024-03-29 07:13] LABS: Albumin, Blood 2.7 g/dL (3.4-5.0); Albumin/Globulin Ratio 0.7 (0.8-1.8); Bilirubin, Total 0.4 mg/dL (0.1-1.0); Calcium, Blood 8.5 mg/dL (8.5-10.1); Creatinine, Blood 0.86 mg/dL (0.60-1.20); Globulin, Blood 3.8 g/dL (2.2-4.0); Potassium, Blood 3.9 mmol/L (3.5-5.5); Total Protein, Blood 6.5 g/dL (6.4-8.2)
[2024-03-29 07:23] VITALS: BP 106/75
[2024-03-29] MEDS ORDERED: Polyethylene Glycol 3350 17 gm PO ONE (11:00)
[2024-03-29] MEDS ORDERED: Polyethylene Glycol 3350 17 gm PO PRN (11:00)
[2024-03-29 15:42] VITALS: BP 133/92
--- NOTE | 2024-03-29 18:28 | NUR ---
SHIFT SUMMARY PT CONT LEVEL OF CARE. PT IS A&O X4. PT NOTED TO HAVE A HARD BM THIS SHIFT WITH BRIGHT RED BLOOD NOTED. PHYSICAN NOTIFED AND ORDER A CBC TOMORROW MORNING. PT NOTED TO INDEPEDENT IN ROOM AND CALLS APPROPRATE.
[2024-03-29 19:23] VITALS: BP 136/86
[2024-03-30 03:30] VITALS: BP 127/72
--- NOTE | 2024-03-30 04:38 | NUR ---
CAUSTIC MIXER SUMMARY PT A/OX4. ABLE TO MAKE NEEDS KNOWN. PT HAD ONE EPISODE OF SCANT XIOMARA BLOOD SMEAR, FOLLOWED BY FULL BOWEL MOVEMENT WITHOUT ANY APPEARANCE OF BLOOD AT APOX 0200. DR LIVINGSTON CALLED IN WITH ORDER TO D/C FLUIDS AND ADVANCE DIET TO FULL LIQUID. PT GIVEN ONE VANILLA PUDDING. PT TOLERATED WELL. PT IS ABLE TO MAKE NEEDS KNOWN AND CALLS APPROPRIATELY. PT LEFT AC IV PULLED OUT; CATH INTACT. NEW IV PLACED IN RIGHT FOREARM. PT TOLERATED WELL.
[2024-03-30 04:57] LABS: BASOPHILS ABSOLUTE AUTO 0.03 K/mm3 (0.00-0.23); BASOPHILS PERCENT AUTO 0 % (0-2); EOSINOPHILS PERCENT AUTO 6 % (0-6); Hematocrit 39.6 % (37.0-53.0); Hemoglobin 13.1 g/dL (13.5-17.5); IMMATURE GRAN ABSOLUTE AUTO 0.02 K/mm3 (0.00-0.10); IMMATURE GRAN PERCENT AUTO 0 % (0-1); LYMPHOCYTES ABSOLUTE AUTO 1.91 K/mm3 (0.84-5.20); LYMPHOCYTES PERCENT AUTO 27 % (21-46); MONOCYTES ABSOLUTE AUTO 0.77 K/mm3 (0.16-1.47); MONOCYTES PERCENT AUTO 11 % (4-13); Mean Corpuscular HGB 31.6 pg (26.0-34.0); Mean Corpuscular HGB Conc 33.1 g/dL (31.5-36.5); Mean Corpuscular Volume 95 fL (80-100); Mean Platelet Volume 8.7 fL (9.1-12.4); NEUTROPHILS ABSOLUTE AUTO 4.06 K/mm3 (1.96-9.15); NEUTROPHILS PERCENT AUTO 56 % (41-73); Platelet Count 207 K/mm3 (150-400); RDW Coefficient Variation 12.9 % (11.7-14.2); RDW Standard Deviation 44.9 fL (35.1-46.3); Red Blood Cell Count 4.15 M/mm3 (4.30-5.90); White Blood Cell Count 7.19 K/mm3 (4.00-11.30)
[2024-03-30 05:25] LABS: Albumin, Blood 2.8 g/dL (3.4-5.0); Albumin/Globulin Ratio 0.7 (0.8-1.8); Bilirubin, Total 0.5 mg/dL (0.1-1.0); Bun/Creatinine Ratio 8.5 (12.0-20.0); Calcium, Blood 8.9 mg/dL (8.5-10.1); Creatinine, Blood 0.83 mg/dL (0.60-1.20); Globulin, Blood 3.9 g/dL (2.2-4.0); Potassium, Blood 3.9 mmol/L (3.5-5.5); Total Protein, Blood 6.7 g/dL (6.4-8.2)
[2024-03-30 07:37] VITALS: BP 129/89
[2024-03-30] MEDS ORDERED: TraMADol HCl 50 MG Tab PO PRN (12:20)
[2024-03-30] MEDS ORDERED: METR500 PO (14:26)
[2024-03-30] MEDS ORDERED: CEFD300 PO (14:26)
[2024-03-30] MEDS ORDERED: TRAM50 PO (14:27)
--- NOTE | 2024-03-30 15:21 | NUR ---
DISCHARGE SUMMARY PT DC THIS SHIFT. DC INSTRUCTION GONE OVER WITH PT WHOM STATED UNDERSTANDING. PT WAS GIVEN HARD COPY OF SCRIPT. PT WAS ESCORTED TO PRIVATE VEHICLE VIA WHEELCHAIR BY [employer].
[2024-04-11] MEDS ORDERED: Ventolin5 MG/1 ML INH (16:59)
[2024-04-11] MEDS ORDERED: SYMBICORT 160-4.6 GM IH (17:00)
[2024-04-11] MEDS ORDERED: METPRE32 PO (17:00)
[2024-04-11] MEDS ORDERED: ALLERCLEAR10 MG PO (17:00)
[2024-04-11] MEDS ORDERED: OMEP20ER PO (17:00)
== END 2024-03-30 14:27 | disposition home or self-care (01) ==
LOC: ER 15:22 → MEDS 15:23 → ENPENDDIS 03-30 14:06 → MEDS 03-30 14:27
PROVIDERS: Emergency Medicine; Internal Medicine; Nurse Practitioner Acute Care; ADMIT Internal Medicine
DX: K57.33 Diverticulitis of large intestine without perforation or abscess with bleeding (principal); J44.9 Chronic obstructive pulmonary disease, unspecified; I10 Essential (primary) hypertension; E78.5 Hyperlipidemia, unspecified; K21.9 Gastro-esophageal reflux disease without esophagitis; N40.0 Benign prostatic hyperplasia without lower urinary tract symptoms; Z98.49 Cataract extraction status, unspecified eye; Z89.022 Acquired absence of left finger(s); Z87.891 Personal history of nicotine dependence; Z88.8 Allergy status to other drugs, medicaments and biological substances; Z88.5 Allergy status to narcotic agent; Z79.899 Other long term (current) drug therapy
CPT/HCPCS: 36415; 76705; 80048; 80053; 81003; 83605; 83690; 83735; 85025; 85027; 85610; 85730; 94640; 94664; 94760; 96365; 96366; 96367; 96375; 96376; 99285-25; A9270; G0378; J0696; J2270; J2405; J2470; J7050; J7120

== ENCOUNTER 2024-04-06 12:03 | Emergency (ER) | payer OTHER ==
[~2024-04-06] VITALS: Ht 162.6 cm; Wt 69.0 kg
[~2024-04-06 12:03] MED LIST changes: +AMOX-CLAV 875-1 EAC5 PO; +CEFD300 PO; +METR500 PO; +ONDA4ODT MM; +ROSUVASTATIN CA10 MG PO
[2024-04-06] MEDS ORDERED: Ondansetron HCl 2 MG / ML 2ML Vial IV ONE (12:10)
[2024-04-06] MEDS ORDERED: Morphine Sulfate 4 MG/1 ML Injection IV ONE (12:10)
[2024-04-06 12:41] LABS: BASOPHILS ABSOLUTE AUTO 0.03 K/mm3 (0.00-0.23); BASOPHILS PERCENT AUTO 0 % (0-2); EOSINOPHILS ABSOLUTE AUTO 0.35 K/mm3 (0.00-0.68); EOSINOPHILS PERCENT AUTO 5 % (0-6); Hematocrit 39.3 % (37.0-53.0); IMMATURE GRAN ABSOLUTE AUTO 0.02 K/mm3 (0.00-0.10); IMMATURE GRAN PERCENT AUTO 0 % (0-1); LYMPHOCYTES ABSOLUTE AUTO 2.39 K/mm3 (0.84-5.20); LYMPHOCYTES PERCENT AUTO 31 % (21-46); MONOCYTES ABSOLUTE AUTO 0.96 K/mm3 (0.16-1.47); MONOCYTES PERCENT AUTO 12 % (4-13); Mean Corpuscular HGB 32.2 pg (26.0-34.0); Mean Corpuscular HGB Conc 33.1 g/dL (31.5-36.5); Mean Corpuscular Volume 97 fL (80-100); Mean Platelet Volume 8.7 fL (9.1-12.4); NEUTROPHILS ABSOLUTE AUTO 3.99 K/mm3 (1.96-9.15); NEUTROPHILS PERCENT AUTO 52 % (41-73); Platelet Count 226 K/mm3 (150-400); RDW Coefficient Variation 13.4 % (11.7-14.2); RDW Standard Deviation 48.6 fL (35.1-46.3); Red Blood Cell Count 4.04 M/mm3 (4.30-5.90); White Blood Cell Count 7.74 K/mm3 (4.00-11.30)
[2024-04-06 13:03] LABS: Albumin, Blood 2.9 g/dL (3.4-5.0); Albumin/Globulin Ratio 0.7 (0.8-1.8); Bilirubin, Total 0.4 mg/dL (0.1-1.0); Bun/Creatinine Ratio 13.3 (12.0-20.0); Calcium, Blood 8.8 mg/dL (8.5-10.1); Creatinine, Blood 0.75 mg/dL (0.60-1.20); Potassium, Blood 4.1 mmol/L (3.5-5.5); Total Protein, Blood 6.9 g/dL (6.4-8.2)
[2024-04-06] MEDS ORDERED: TRAM50 PO (13:54)
[2024-04-06] MEDS ORDERED: ONDA4ODT MM (13:54)
[2024-04-06 15:14] VITALS: BP 127/81
[2024-04-11] MEDS ORDERED: Ventolin5 MG/1 ML INH (16:59)
[2024-04-11] MEDS ORDERED: ALLERCLEAR10 MG PO (17:00)
[2024-04-11] MEDS ORDERED: OMEP20ER PO (17:00)
[2024-04-11] MEDS ORDERED: SYMBICORT 160-4.6 GM IH (17:00)
[2024-04-11] MEDS ORDERED: METPRE32 PO (17:00)
== END 2024-04-06 15:14 | disposition home or self-care (01) ==
LOC: ER 12:03
PROVIDERS: Emergency Medicine
DX: I70.8 Atherosclerosis of other arteries (principal); J44.9 Chronic obstructive pulmonary disease, unspecified; E78.5 Hyperlipidemia, unspecified; I10 Essential (primary) hypertension; K21.9 Gastro-esophageal reflux disease without esophagitis; Z87.891 Personal history of nicotine dependence; Z79.899 Other long term (current) drug therapy; Z88.5 Allergy status to narcotic agent; Z88.8 Allergy status to other drugs, medicaments and biological substances; Z88.1 Allergy status to other antibiotic agents
CPT/HCPCS: 74177; 80053; 85025; 96374-59; 96375; 99284-25; J2270; J2405; Q9967

== ENCOUNTER 2024-04-14 10:03 | Day surgery (SDC) | payer OTHER ==
[~2024-04-14] VITALS: Ht 157.5 cm; Wt 66.1 kg
[~2024-04-14 10:03] MED LIST changes: +ALLERCLEAR10 MG PO; +METPRE32 PO; +OMEP20ER PO; +SYMBICORT 160-4.6 GM IH; +Ventolin5 MG/1 ML INH
[2024-04-14] MEDS ORDERED: NS 500 ML IV SCH (11:00)
[2024-04-14 11:15] VITALS: BP 141/99
--- NOTE | 2024-04-14 11:26 | NUR ---
Wheelchaired into Day Surgery. History, Chart, Medications and Allergies reviewed before start of procedure. Pre-Op teaching done. Pt verbalizes understanding. Patient States Post-Procedure ride home has been arranged.
[2024-04-14] MEDS ORDERED: Ipratropium/Albuterol SulF 2.5-0.5MG/3 ML Amp ONE (12:05)
[2024-04-14] MEDS ORDERED: Ipratropium/Albuterol SulF 2.5-0.5MG/3 ML Amp INH ONE (12:15)
[2024-04-14] MEDS ORDERED: propofoL 40 ML IV ONE (12:24)
--- NOTE | 2024-04-14 12:28 | NUR ---
04/14/24 1228 Shanice Santizo MONITOR INTACT WITH CONTINUOUS PULSE OXIMETRY, CONTINUOUS END TITAL CO2, AND INTERMITTENT BLOOD PRESSURE.
[2024-04-14] MEDS ORDERED: propofoL 20 ML IV ONE (12:52)
[2024-04-14 13:13] VITALS: BP 116/75
[2024-04-14 13:15] VITALS: BP 112/73
[2024-04-14 13:30] VITALS: BP 142/85
[2024-04-14 13:45] VITALS: BP 153/98
--- NOTE | 2024-04-14 14:09 | NUR ---
ASSISTED PATIENT TO DRESS. USES CANE AT BASELINE. ABLE TO INDEPENDENTLY DRESS, APPEARS BACK TO BASELINE. COUGHING UP CLEAR SPUTUM, STATES NORMAL. PATIENT REPORTS ONLY PAIN FROM BROKEN RIBS PRIOR TO ADMIT. DENIES NAUSEA. TOLERATING PO. Discharge instructions reviewed with patient. Patient verbalizes understanding. Copy given to patient to take home. Discharged via wheelchair to private car for ride home WITH
== END 2024-04-14 23:00 | disposition home or self-care (01) ==
LOC: ORSCMMR 10:03 → ORD 11:30 → ORSCMMR 23:00
PROVIDERS: Surgery
PROC: 0DBN8ZX Excision of Sigmoid Colon, Via Natural or Artificial Opening Endoscopic, Diagnostic (ICD-10-PCS; principal; 2024-04-14 11:30)
PROC: 0DB68ZX Excision of Stomach, Via Natural or Artificial Opening Endoscopic, Diagnostic (ICD-10-PCS; principal; 2024-04-14 11:30)
DX: K62.5 Hemorrhage of anus and rectum (principal); K52.9 Noninfective gastroenteritis and colitis, unspecified; D12.5 Benign neoplasm of sigmoid colon; K57.30 Diverticulosis of large intestine without perforation or abscess without bleeding; K64.8 Other hemorrhoids; K29.50 Unspecified chronic gastritis without bleeding; K44.9 Diaphragmatic hernia without obstruction or gangrene; J45.909 Unspecified asthma, uncomplicated; K21.9 Gastro-esophageal reflux disease without esophagitis; R10.32 Left lower quadrant pain; N40.0 Benign prostatic hyperplasia without lower urinary tract symptoms; J44.9 Chronic obstructive pulmonary disease, unspecified; I10 Essential (primary) hypertension; E78.5 Hyperlipidemia, unspecified; Z79.899 Other long term (current) drug therapy; Z87.891 Personal history of nicotine dependence
CPT/HCPCS: 88305; 88342; J2704; J7040

== ENCOUNTER 2024-08-04 20:42 | Emergency (ER) | payer MEDICARE ==
[~2024-08-04] VITALS: Ht 162.6 cm; Wt 70.3 kg
[2024-08-04] MEDS ORDERED: Ipratropium/Albuterol SulF 2.5-0.5MG/3 ML Amp INH PRN (21:05)
[2024-08-04 21:11] LABS: BASOPHILS ABSOLUTE AUTO 0.03 K/mm3 (0.00-0.23); BASOPHILS PERCENT AUTO 0 % (0-2); EOSINOPHILS ABSOLUTE AUTO 0.41 K/mm3 (0.00-0.68); EOSINOPHILS PERCENT AUTO 5 % (0-6); Hematocrit 33.5 % (37.0-53.0); Hemoglobin 10.4 g/dL (13.5-17.5); IMMATURE GRAN ABSOLUTE AUTO 0.02 K/mm3 (0.00-0.10); IMMATURE GRAN PERCENT AUTO 0 % (0-1); LYMPHOCYTES ABSOLUTE AUTO 2.88 K/mm3 (0.84-5.20); LYMPHOCYTES PERCENT AUTO 37 % (21-46); MONOCYTES ABSOLUTE AUTO 0.61 K/mm3 (0.16-1.47); MONOCYTES PERCENT AUTO 8 % (4-13); Mean Corpuscular Volume 103 fL (80-100); Mean Platelet Volume 8.9 fL (9.1-12.4); NEUTROPHILS PERCENT AUTO 49 % (41-73); Platelet Count 182 K/mm3 (150-400); RDW Coefficient Variation 12.8 % (11.7-14.2); RDW Standard Deviation 48.1 fL (35.1-46.3); Red Blood Cell Count 3.25 M/mm3 (4.30-5.90); White Blood Cell Count 7.75 K/mm3 (4.00-11.30)
[2024-08-04 21:28] LABS: Albumin, Blood 2.2 g/dL (3.4-5.0); Albumin/Globulin Ratio 0.6 (0.8-1.8); Bilirubin, Total 0.2 mg/dL (0.1-1.0); Bun/Creatinine Ratio 24.2 (12.0-20.0); Calcium, Blood 6.9 mg/dL (8.5-10.1); Creatinine, Blood 0.66 mg/dL (0.60-1.20); Globulin, Blood 3.7 g/dL (2.2-4.0); Potassium, Blood 3.1 mmol/L (3.5-5.5); Total Protein, Blood 5.9 g/dL (6.4-8.2)
[2024-08-04] MEDS ORDERED: Albuterol 2.5 MG/3 ML VIAL INH SCH (21:55)
[2024-08-04 22:00] VITALS: BP 141/79
[2024-08-04] MEDS ORDERED: Potassium Chloride 20 MEQ/15 ML UDC PO ONE (22:00)
[2024-08-04] MEDS ORDERED: PRED20 PO (23:05)
[2024-08-04] MEDS ORDERED: ALBU2.5V5 INH (23:05)
[2024-08-04] MEDS ORDERED: AZIT250 PO (23:05)
== END 2024-08-04 23:15 | disposition home or self-care (01) ==
LOC: ER 20:42
PROVIDERS: Student in an Organized Health Care Education/Training Program
DX: J44.1 Chronic obstructive pulmonary disease with (acute) exacerbation (principal); I10 Essential (primary) hypertension; E78.5 Hyperlipidemia, unspecified; K21.9 Gastro-esophageal reflux disease without esophagitis; M81.0 Age-related osteoporosis without current pathological fracture; Z87.891 Personal history of nicotine dependence; Z99.81 Dependence on supplemental oxygen; Z88.8 Allergy status to other drugs, medicaments and biological substances; Z88.5 Allergy status to narcotic agent; Z79.51 Long term (current) use of inhaled steroids; Z79.899 Other long term (current) drug therapy
CPT/HCPCS: 71046; 80053; 84484; 85025; 93005; 93010; 94640; 94644; 94664; 99285-25; A9270

== ENCOUNTER 2024-08-30 11:36 | Emergency (ER) | payer MEDICARE ==
[~2024-08-30] VITALS: Ht 157.5 cm; Wt 68.0 kg
[~2024-08-30 11:36] MED LIST changes: +ALBU2.5V5 INH; +PRED20 PO; -SYMBICORT 160-4.6 GM IH
[2024-08-30 12:35] VITALS: BP 139/82
[2024-08-30 13:03] LABS: BASOPHILS ABSOLUTE AUTO 0.04 K/mm3 (0.00-0.23); BASOPHILS PERCENT AUTO 1 % (0-2); EOSINOPHILS ABSOLUTE AUTO 0.18 K/mm3 (0.00-0.68); EOSINOPHILS PERCENT AUTO 2 % (0-6); Hematocrit 43.4 % (37.0-53.0); Hemoglobin 14.4 g/dL (13.5-17.5); IMMATURE GRAN ABSOLUTE AUTO 0.02 K/mm3 (0.00-0.10); IMMATURE GRAN PERCENT AUTO 0 % (0-1); LYMPHOCYTES ABSOLUTE AUTO 1.89 K/mm3 (0.84-5.20); LYMPHOCYTES PERCENT AUTO 25 % (21-46); MONOCYTES ABSOLUTE AUTO 0.61 K/mm3 (0.16-1.47); MONOCYTES PERCENT AUTO 8 % (4-13); Mean Corpuscular HGB 31.7 pg (26.0-34.0); Mean Corpuscular HGB Conc 33.2 g/dL (31.5-36.5); Mean Corpuscular Volume 96 fL (80-100); NEUTROPHILS ABSOLUTE AUTO 4.97 K/mm3 (1.96-9.15); NEUTROPHILS PERCENT AUTO 65 % (41-73); Platelet Count 266 K/mm3 (150-400); RDW Coefficient Variation 13.3 % (11.7-14.2); RDW Standard Deviation 46.8 fL (35.1-46.3); Red Blood Cell Count 4.54 M/mm3 (4.30-5.90); White Blood Cell Count 7.71 K/mm3 (4.00-11.30)
[2024-08-30 13:21] LABS: Albumin, Blood 2.9 g/dL (3.4-5.0); Albumin/Globulin Ratio 0.6 (0.8-1.8); Bilirubin, Total 0.8 mg/dL (0.1-1.0); Bun/Creatinine Ratio 33.3 (12.0-20.0); Calcium, Blood 8.8 mg/dL (8.5-10.1); Creatinine, Blood 0.63 mg/dL (0.60-1.20); Globulin, Blood 5.2 g/dL (2.2-4.0); Potassium, Blood 4.4 mmol/L (3.5-5.5); Total Protein, Blood 8.1 g/dL (6.4-8.2)
== END 2024-08-30 18:20 | disposition home or self-care (01) ==
LOC: ER 11:36
PROVIDERS: Student in an Organized Health Care Education/Training Program
DX: L89.151 Pressure ulcer of sacral region, stage 1 (principal); S90.822A Blister (nonthermal), left foot, initial encounter; S90.821A Blister (nonthermal), right foot, initial encounter; C34.90 Malignant neoplasm of unspecified part of unspecified bronchus or lung; J44.9 Chronic obstructive pulmonary disease, unspecified; I10 Essential (primary) hypertension; F17.210 Nicotine dependence, cigarettes, uncomplicated
CPT/HCPCS: 71046; 80053; 83880; 85025; 93005; 93010; 99284-25

== ENCOUNTER 2024-09-03 08:48 | Observation (INO) | payer MEDICARE ==
[~2024-09-03] VITALS: Ht 157.5 cm; Wt 63.9 kg
[2024-09-03] MEDS ORDERED: Ketorolac Tromethamine 30mg Vial IV ONE (09:40)
[2024-09-03] MEDS ORDERED: Lactated Ringer's 1,000 ML IV ONE ×2 (09:40→10:06)
[2024-09-03] MEDS ORDERED: MethylPREDNISolone Sod Succ 125 MG Vial IV ONE (09:45)
[2024-09-03] MEDS ORDERED: Albuterol 2.5 MG/3 ML VIAL INH SCH (09:45)
[2024-09-03 09:59] LABS: BASOPHILS ABSOLUTE AUTO 0.03 K/mm3 (0.00-0.23); BASOPHILS PERCENT AUTO 0 % (0-2); EOSINOPHILS ABSOLUTE AUTO 0.01 K/mm3 (0.00-0.68); EOSINOPHILS PERCENT AUTO 0 % (0-6); Hemoglobin 14.6 g/dL (13.5-17.5); IMMATURE GRAN ABSOLUTE AUTO 0.06 K/mm3 (0.00-0.10); IMMATURE GRAN PERCENT AUTO 1 % (0-1); LYMPHOCYTES ABSOLUTE AUTO 1.07 K/mm3 (0.84-5.20); LYMPHOCYTES PERCENT AUTO 9 % (21-46); MONOCYTES ABSOLUTE AUTO 0.96 K/mm3 (0.16-1.47); MONOCYTES PERCENT AUTO 8 % (4-13); Mean Corpuscular HGB 31.9 pg (26.0-34.0); Mean Corpuscular Volume 94 fL (80-100); Mean Platelet Volume 9.4 fL (9.1-12.4); NEUTROPHILS PERCENT AUTO 82 % (41-73); Platelet Count 317 K/mm3 (150-400); RDW Coefficient Variation 13.2 % (11.7-14.2); RDW Standard Deviation 45.5 fL (35.1-46.3); Red Blood Cell Count 4.57 M/mm3 (4.30-5.90); White Blood Cell Count 11.63 K/mm3 (4.00-11.30)
[2024-09-03 10:22] LABS: Albumin, Blood 2.7 g/dL (3.4-5.0); Albumin/Globulin Ratio 0.5 (0.8-1.8); Bilirubin, Total 0.9 mg/dL (0.1-1.0); Bun/Creatinine Ratio 23.9 (12.0-20.0); Calcium, Blood 8.5 mg/dL (8.5-10.1); Creatinine, Blood 0.84 mg/dL (0.60-1.20); Globulin, Blood 5.4 g/dL (2.2-4.0); Magnesium, Blood 1.9 mg/dL (1.6-2.4); Thyroid Stimulating Hormone 4.91 uIU/mL (0.360-4.800); Total Protein, Blood 8.1 g/dL (6.4-8.2)
[2024-09-03 12:27] LABS: Influenza A, PCR NEGATIVE (NEGATIVE); Influenza B, PCR NEGATIVE (NEGATIVE); Resp Syncytial Virus, PCR NEGATIVE (NEGATIVE); SARS-Cov-2 (COVID-19) PCR, MMC NEGATIVE (NEGATIVE)
[2024-09-03] MEDS ORDERED: Ondansetron HCl 2 MG / ML 2ML Vial IV PRN (12:55)
[2024-09-03] MEDS ORDERED: FLU VACC TS2024-25(6MOS UP)/PF 45 MCG/0.5 ML SYRINGE IM ONE (12:55)
[2024-09-03] MEDS ORDERED: TraMADol HCl 50 MG Tab PO PRN (12:55)
[2024-09-03 13:22] LABS: Source, Urine Clean Catch
[2024-09-03 13:27] LABS: Appearance, Urine Clear (Clear); Blood, Urine 2+ (Neg); Color, Urine Yellow (P-Yellow); Glucose Qualitative, Urine Neg (Neg); Ketones, Urine 1+ (Neg); Leukocyte Esterase, Urine 1+ (Neg); Nitrite, Urine Neg (Neg); Protein, Urine 2+ (Neg); Urobilinogen, Urine 2+ (Normal)
[2024-09-03 13:39] LABS: Bilirubin, Urine 1+ (Neg)
[2024-09-03 13:40] LABS: Bacteria Few /hpf; Hyaline Casts 0-2 /lpf (0-2); Squamous Epithelial Cells Rare /hpf (Few)
[2024-09-03] MEDS ORDERED: Mometasone/Formoterol MDI 200/5 mcg 13 GM INH SCH (14:10)
[2024-09-03 14:23] VITALS: BP 151/92
--- NOTE | 2024-09-03 16:21 | NUR ---
PT CAME FROM ED GOT REPORT FROM SCOUT. PT HAS NO C/O PAIN R SOB OR CHESTY PAIN. PT IS AOX4.PT HAS NO QUESTIONS OR CONCERNS AT THIS TIME.
[2024-09-03 19:35] VITALS: BP 144/83
[2024-09-03] MEDS ORDERED: Arginine/Glutamine/Calcium Hmb 1 Packet PO SCH (21:00)
[2024-09-04 00:18] VITALS: BP 127/81
[2024-09-04 04:23] VITALS: BP 138/84
[2024-09-04 05:53] LABS: BASOPHILS PERCENT AUTO 0 % (0-2); EOSINOPHILS PERCENT AUTO 0 % (0-6); Hematocrit 37.9 % (37.0-53.0); Hemoglobin 13.1 g/dL (13.5-17.5); IMMATURE GRAN ABSOLUTE AUTO 0.05 K/mm3 (0.00-0.10); IMMATURE GRAN PERCENT AUTO 1 % (0-1); LYMPHOCYTES ABSOLUTE AUTO 0.89 K/mm3 (0.84-5.20); LYMPHOCYTES PERCENT AUTO 10 % (21-46); MONOCYTES ABSOLUTE AUTO 0.66 K/mm3 (0.16-1.47); MONOCYTES PERCENT AUTO 7 % (4-13); Mean Corpuscular HGB 31.6 pg (26.0-34.0); Mean Corpuscular HGB Conc 34.6 g/dL (31.5-36.5); Mean Corpuscular Volume 92 fL (80-100); Mean Platelet Volume 9.8 fL (9.1-12.4); NEUTROPHILS ABSOLUTE AUTO 7.73 K/mm3 (1.96-9.15); NEUTROPHILS PERCENT AUTO 83 % (41-73); Platelet Count 280 K/mm3 (150-400); RDW Standard Deviation 43.5 fL (35.1-46.3); Red Blood Cell Count 4.14 M/mm3 (4.30-5.90); White Blood Cell Count 9.33 K/mm3 (4.00-11.30)
[2024-09-04] MEDS ORDERED: Omeprazole 20 MG CapCR PO SCH (06:00)
[2024-09-04 06:12] LABS: Bun/Creatinine Ratio 43.5 (12.0-20.0); Calcium, Blood 8.8 mg/dL (8.5-10.1); Creatinine, Blood 0.64 mg/dL (0.60-1.20); Potassium, Blood 3.8 mmol/L (3.5-5.5)
[2024-09-04 07:29] VITALS: BP 121/84
[2024-09-04] MEDS ORDERED: Rosuvastatin Calcium 10 MG Tab PO SCH (09:00)
[2024-09-04] MEDS ORDERED: AmLODIPine Besylate 5 MG Tab PO SCH (09:00)
[2024-09-04] MEDS ORDERED: Enoxaparin 40 MG/0.4 ML SYR SC SCH (09:00)
[2024-09-04] MEDS ORDERED: CefTRIAXone Sodium 1,000 MG in NS 100 ML IV SCH (10:00)
[2024-09-04] MEDS ORDERED: NS 250 ML IV PRN (10:05)
[2024-09-04] MEDS ORDERED: Azithromycin 500 MG in NS 250 ML IV SCH (12:00)
[2024-09-04 12:31] VITALS: BP 116/91
--- NOTE | 2024-09-04 15:50 | NUR ---
MET WITH PATIENT. HE IS RESTING IN BED AT THIS TIME. HE REPORTED THAT HE IS BEGINNING TO FEEL BETTER. HE REPORTED THAT HE HAS A WOUND ON HIS BOTTOM AND WOUNDS ON THE BALL OF BOTH FEET. HE IS A PATIENT OF DR. GONZALEZ. HE IS CURRENTLY RECIEVING TREATMENT, UNCERTIAN OF TYPE. PT AND I DISCUSSED HIS POLST ON FILE REFLECTING FULL CODE AND FULL TREATMENT. PT REPORTED THAT " LONG MY IS ALIVE HE WANTS TO DO EVERYTHING, SOON SHES GONE SO AM I" HE WISHES TO REMAIN A FULL CODE AND PURSUE ALL MEDICAL TREATMENT AT THIS TIME. CALL TO DR. GONZALEZ. HE REPORTED THAT THOMAS HAS A FOLLOW UP[ September. HE REPORTED THAT THREE WEEKS AGO THOMAS STARTED A NEW TREATMENT. ORAL, TARGETED THERAPY. AND THAT HE IS STILL A CANDIDATE FOR CONTINUING TREATMENT. UPDATED [employer]EN PROVIDER, AND CARE SERVICES MANAGER. CALL PLACED TO . NO ANSWER AT THIS TIME. PC WILL CONTINUE TO PROVIDE SUPPORT
[2024-09-04] MEDS ORDERED: Ketorolac Tromethamine 30mg Vial IV PRN (16:30)
--- NOTE | 2024-09-04 18:37 | NUR ---
SHIFT SUMMARY PT A&OX4. PT ADMITTED DUE TO COPD EXAC. PT ON 3L OF O2 VIA N/C. PT REPORTS USING O2 AT BASE. PT REPORTS NO CHEST PAIN OR SOB. OCCUPATIONAL THERAPY SAW PT TODAY, REPORTED PT BEING 2 ASSIST MAX WITH FWW. ORTHO CONSULTED ABOUT R KNEE. PT THIS AM GOT AN XRAY OF KNEE. ORTHO CAME TO ASSESS, REPORTED HE CAN COME IN AN OUTPATIENT SETTING TO GET INJECTION. PT REPORTS GENERALIZED PAIN, TAKES TRAMADOL AND NOW TORADOL. PT CONT. OF URINE AND BM. REPORTS A INCREASE IN DIARHEA. BSC AT BEDSIDE. PT WILL GET PROBIOTIC TONIGHT. REPORTED PRESSURE INJURY ON COCCYX AND SOLE OF FEET TO DR. WHEELER. DR. WHEELER ORDERED WOUND CARE, CLEANED BOTTOM WITH FEET WITH 4X4 GAUZE AND WOUND SPRAY AND PAT DRY APPLIED MEPILEX. CLEANED COCCYX WITH 4X4 GAUZE AND WOUND SPRAY AND PAT DRY AND APPLIED NEW MEPILEX. PT ON TELE. VSS. PT EATS ADEQUATE. PT IN BED, BED IN LOWEST POSITION, CALL LIGHT IN REACH.
[2024-09-04 19:25] VITALS: BP 129/80
[2024-09-04] MEDS ORDERED: Lactobacil 2-S.Thermo-Bifido 1 1 Cap PO SCH (21:00)
[2024-09-04 23:05] VITALS: BP 123/91
[2024-09-05 03:06] VITALS: BP 153/88
[2024-09-05 06:29] LABS: BASOPHILS ABSOLUTE AUTO 0.03 K/mm3 (0.00-0.23); BASOPHILS PERCENT AUTO 0 % (0-2); EOSINOPHILS ABSOLUTE AUTO 0.01 K/mm3 (0.00-0.68); EOSINOPHILS PERCENT AUTO 0 % (0-6); Hematocrit 35.5 % (37.0-53.0); IMMATURE GRAN ABSOLUTE AUTO 0.02 K/mm3 (0.00-0.10); IMMATURE GRAN PERCENT AUTO 0 % (0-1); LYMPHOCYTES ABSOLUTE AUTO 2.05 K/mm3 (0.84-5.20); LYMPHOCYTES PERCENT AUTO 20 % (21-46); MONOCYTES ABSOLUTE AUTO 0.59 K/mm3 (0.16-1.47); MONOCYTES PERCENT AUTO 6 % (4-13); Mean Corpuscular HGB 31.3 pg (26.0-34.0); Mean Corpuscular HGB Conc 33.8 g/dL (31.5-36.5); Mean Corpuscular Volume 93 fL (80-100); Mean Platelet Volume 10.3 fL (9.1-12.4); NEUTROPHILS ABSOLUTE AUTO 7.79 K/mm3 (1.96-9.15); NEUTROPHILS PERCENT AUTO 74 % (41-73); Platelet Count 274 K/mm3 (150-400); RDW Coefficient Variation 13.2 % (11.7-14.2); RDW Standard Deviation 44.7 fL (35.1-46.3); Red Blood Cell Count 3.83 M/mm3 (4.30-5.90); White Blood Cell Count 10.49 K/mm3 (4.00-11.30)
[2024-09-05 06:58] LABS: Bun/Creatinine Ratio 54.4 (12.0-20.0); Calcium, Blood 8.4 mg/dL (8.5-10.1); Creatinine, Blood 0.66 mg/dL (0.60-1.20); Potassium, Blood 4.8 mmol/L (3.5-5.5)
[2024-09-05 07:30] VITALS: BP 133/89
[2024-09-05] MEDS ORDERED: SORAFENIB200 MG PO (11:32)
[2024-09-05 12:24] VITALS: BP 113/79
[2024-09-05] MEDS ORDERED: Sodium Chloride 1 GM TAB PO SCH (14:00)
[2024-09-05 16:50] VITALS: BP 143/87
--- NOTE | 2024-09-05 19:07 | NUR ---
SHIFT SUMMARY PT A&OX4. PT ADMITTED DUE TO COPD EXAC. PT ON 3L OF O2 VIA N/C. PT REPORTS USING O2 AT BASE. PT REPORTS NO CHEST PAIN OR SOB. PT REPORTS GENERALIZED PAIN. PT CONT. OF URINE AND BM AND USES URINAL OR BSC. PODIATRY WAS CONSULTED. ECHO COMPLETED. IV WAS NOT PATENT, PT NOW HAS IV IN L FA. PLAN FOR [facility] FACILITY, CASE MANAGEMENT INVOLVED IN COORDINATING. PT EATS ADEQUATE. PT GETTING IV ANTIBIOTIC. PT ON TELE. PT IN BED AND BED IN LOWEST POSITION, PT CALL LIGHT IN REACH AND CALLS APPROPRIATELY.
[2024-09-05 19:20] VITALS: BP 124/80
[2024-09-05 23:14] VITALS: BP 150/77
[2024-09-06 03:23] VITALS: BP 147/92
[2024-09-06 07:02] LABS: Bun/Creatinine Ratio 37.9 (12.0-20.0); Calcium, Blood 8.4 mg/dL (8.5-10.1); Creatinine, Blood 0.69 mg/dL (0.60-1.20); Magnesium, Blood 1.8 mg/dL (1.6-2.4); Potassium, Blood 3.8 mmol/L (3.5-5.5)
[2024-09-06 07:33] VITALS: BP 136/83
[2024-09-06 15:01] VITALS: BP 111/77
--- NOTE | 2024-09-06 18:35 | NUR ---
SHIFT SUMMARY PT AOX4, COOPERATIVE, ABLE TO MAKE NEEDS KNOWN. PT ON 2L O2 CURRENTLY. REMAINED IN BED FOR MOST OF SHIFT. COMPLAINS OF PAIN AT COCCYX REGION, MEDICATE PER EMAR. WOUND CARE ORDERS IN FOR FEET. Q2 TURNS. BED IN LOWEST POSITION, CALL LIGHT WITHIN REACH.
[2024-09-06 20:00] VITALS: BP 156/81
[2024-09-07 00:10] VITALS: BP 141/83
[2024-09-07 03:59] VITALS: BP 145/81
--- NOTE | 2024-09-07 05:28 | NUR ---
SHIFT SUMMARY PT ALERT AND ORIENTED TIMES 4. PT ADMITTED FOR COPD WITH EXACERBATION.. PT HAS WOUNDS ON THE PLANTAR SURFACE OF FOOT. WOUND ORDER IN PLACE. PT ABLE TO AMBULATE TO BEDSIDE COMMODE WITH ONE ASSIST.. AND USES URINAL. PT IS APPROPRIATE WITH CALL LIGHT. PT IS RECEPTIVE TO CARE. PT APPEARED TO SLEEP THROUGH THE NIGHT WITHOUT ISSUE. BED IN LOW POSITION, CALL LIGHT WITHIN REACH, RAILS TIMES 2.
[2024-09-07 06:35] LABS: Bun/Creatinine Ratio 28.1 (12.0-20.0); Calcium, Blood 8.3 mg/dL (8.5-10.1); Creatinine, Blood 0.61 mg/dL (0.60-1.20)
[2024-09-07 07:41] VITALS: BP 149/94
--- NOTE | 2024-09-07 10:45 | NUR ---
PT BROUGHT IN CANCER MEDICATION "SORAFENIB 200MG". PT SUPPOSED TO BE TAKING 2 PILLS IN MORNING ON EMPTY STOMACH, AND 1 HOUR BEFORE OR 2 HOURS AFTER FOOD IN EVENING. SUPPOSED TO BE TAKEN 12 HOURS APART. PT HAS NOT BEEN TAKING SINCE ADMITTED ON 09/03, AND SUPPOSABLY WILL NOT GIVE MEDICATION TO PT. AWAITING TO TALK TO MD ON WHAT TO DO .
[2024-09-07] MEDS ORDERED: Phenazopyridine HCl 100 MG Tab PO PRN (11:40)
--- NOTE | 2024-09-07 13:43 | NUR ---
PERFORMED WOUND CARE PER ORDER.
[2024-09-07 15:12] VITALS: BP 133/72
[2024-09-07 16:34] LABS: Source, Urine Clean Catch
--- NOTE | 2024-09-07 16:34 | NUR ---
SHIFT SUMMARY PT AOX3/4, COOPERATIVE, ABLE TO MAKE NEEDS KNOWN. WOUND CARE OF PERFORMED TODAY TO COCCYX AND BLATERAL FEET. PT USING O2 CONTINUOUSLY, IS A 1-2 PERSON ASSIST TO BEDSIDE COMMODE. SPOUSE DID BRING IN CANCER MEDICATION, WAS APPROVED BY PHARMACY AND ORDER IS PLACED. MEDICATION IS IN ROOM DRAWER. BED IN LOWEST POSITION, CALL LIGHT WITHIN REACH.
[2024-09-07 16:38] LABS: Appearance, Urine Clear (Clear); Bilirubin, Urine Neg (Neg); Blood, Urine Neg (Neg); Color, Urine Yellow (P-Yellow); Glucose Qualitative, Urine Neg (Neg); Ketones, Urine Neg (Neg); Leukocyte Esterase, Urine 1+ (Neg); Nitrite, Urine Neg (Neg); Protein, Urine Neg (Neg); Specific Gravity, Urine 1.015 (1.003-1.022); Urobilinogen, Urine NORM (Normal)
[2024-09-07 16:54] LABS: Bacteria Rare /hpf; Red Blood Cells, Urine 0-2 /hpf (0-2); Squamous Epithelial Cells Rare /hpf (Few)
[2024-09-07 21:01] VITALS: BP 136/91
[2024-09-08 00:22] VITALS: BP 132/69
[2024-09-08 03:41] VITALS: BP 135/90
[2024-09-08 06:35] LABS: Bun/Creatinine Ratio 28.9 (12.0-20.0); Calcium, Blood 8.3 mg/dL (8.5-10.1); Creatinine, Blood 0.59 mg/dL (0.60-1.20); Potassium, Blood 3.9 mmol/L (3.5-5.5)
[2024-09-08 07:34] VITALS: BP 132/88
[2024-09-08 09:12] LABS: BASOPHILS ABSOLUTE AUTO 0.02 K/mm3 (0.00-0.23); BASOPHILS PERCENT AUTO 0 % (0-2); EOSINOPHILS ABSOLUTE AUTO 0.35 K/mm3 (0.00-0.68); EOSINOPHILS PERCENT AUTO 4 % (0-6); Hematocrit 37.5 % (37.0-53.0); Hemoglobin 12.2 g/dL (13.5-17.5); IMMATURE GRAN ABSOLUTE AUTO 0.01 K/mm3 (0.00-0.10); IMMATURE GRAN PERCENT AUTO 0 % (0-1); LYMPHOCYTES ABSOLUTE AUTO 2.02 K/mm3 (0.84-5.20); LYMPHOCYTES PERCENT AUTO 25 % (21-46); MONOCYTES ABSOLUTE AUTO 0.48 K/mm3 (0.16-1.47); MONOCYTES PERCENT AUTO 6 % (4-13); Mean Corpuscular HGB Conc 32.5 g/dL (31.5-36.5); Mean Corpuscular Volume 95 fL (80-100); Mean Platelet Volume 9.3 fL (9.1-12.4); NEUTROPHILS ABSOLUTE AUTO 5.23 K/mm3 (1.96-9.15); NEUTROPHILS PERCENT AUTO 65 % (41-73); Platelet Count 256 K/mm3 (150-400); RDW Coefficient Variation 12.8 % (11.7-14.2); RDW Standard Deviation 45.2 fL (35.1-46.3); Red Blood Cell Count 3.94 M/mm3 (4.30-5.90); White Blood Cell Count 8.11 K/mm3 (4.00-11.30)
[2024-09-08 11:55] VITALS: BP 112/70
[2024-09-08 16:10] VITALS: BP 127/81
--- NOTE | 2024-09-08 18:32 | NUR ---
SHIFT SUMMARY PT A&0X4. PT ADMITTED DUE TO COPD EXAC. PT ON 3L OF 02 VIA N/C, PT REPORTS USING O2 AT BASE, PT REPORTS NO CHEST PAIN OR SOB. PT REPORTS GENERALIZED PAIN. PT CONT. OF URINE AND BM AND USES URINAL OR BEDPAN. PLAN FOR INTERMEDIATE FACILITY, CASE MANAGEMENT INVOLVED IN COORDINATING. PT EATS ADEQUATE. PT ON TELE. PT IN BED, BED IN LOWEST POSITION, PT CALL LIGHT IN REACH AND CALLS APPROPRIATE. IR CONSULTED. PT WORKED WITH PT AND OT TODAY, RECOMMENDED USING SLIDER BOARD. VSS. DR. NEUMANN NOTIFIED PT GOT DIZZY WORKING WITH PT THIS AM. PT REPORTED BLISTER IN MOUTH, CONSULTED DENTAL HYGENTIST, DENTAL HYGENTIST ASSESSED PT AND ORDERED TID RINSES.
[2024-09-08 19:36] VITALS: BP 138/94
[2024-09-09] VITALS (7 sets, daily range): BP systolic 118–143; BP diastolic 74–85
--- NOTE | 2024-09-09 04:20 | NUR ---
PT A&O X4. VS WNL, TELE NSR IN 90'S. O2 AT 2L/ NC. UP TO BSC FOR BM WITH PWB, ALTHOUGH BLISTERS ON PLANTAR PORTION OF FEET ARE DRY AND NO LONGER LEAKING ANY FLUID. PT APPROPRIATE WITH USE OF CALL SYSTEM. PO INTAKE WNL, VOIDS USING URINAL. DENIES PAIN THIS SHIFT. PLAN TO D/C TO SNF, AWAITING APPROVAL.
[2024-09-09 05:47] LABS: BASOPHILS ABSOLUTE AUTO 0.03 K/mm3 (0.00-0.23); BASOPHILS PERCENT AUTO 0 % (0-2); EOSINOPHILS ABSOLUTE AUTO 0.37 K/mm3 (0.00-0.68); EOSINOPHILS PERCENT AUTO 5 % (0-6); Hematocrit 36.4 % (37.0-53.0); Hemoglobin 12.2 g/dL (13.5-17.5); IMMATURE GRAN ABSOLUTE AUTO 0.03 K/mm3 (0.00-0.10); IMMATURE GRAN PERCENT AUTO 0 % (0-1); LYMPHOCYTES ABSOLUTE AUTO 1.93 K/mm3 (0.84-5.20); LYMPHOCYTES PERCENT AUTO 25 % (21-46); MONOCYTES ABSOLUTE AUTO 0.57 K/mm3 (0.16-1.47); MONOCYTES PERCENT AUTO 8 % (4-13); Mean Corpuscular HGB 31.6 pg (26.0-34.0); Mean Corpuscular HGB Conc 33.5 g/dL (31.5-36.5); Mean Corpuscular Volume 94 fL (80-100); Mean Platelet Volume 9.1 fL (9.1-12.4); NEUTROPHILS ABSOLUTE AUTO 4.71 K/mm3 (1.96-9.15); NEUTROPHILS PERCENT AUTO 62 % (41-73); Platelet Count 226 K/mm3 (150-400); RDW Coefficient Variation 12.9 % (11.7-14.2); RDW Standard Deviation 44.4 fL (35.1-46.3); Red Blood Cell Count 3.86 M/mm3 (4.30-5.90); White Blood Cell Count 7.64 K/mm3 (4.00-11.30)
[2024-09-09 06:05] LABS: Bun/Creatinine Ratio 37.2 (12.0-20.0); Calcium, Blood 8.4 mg/dL (8.5-10.1); Creatinine, Blood 0.59 mg/dL (0.60-1.20); Potassium, Blood 4.3 mmol/L (3.5-5.5)
--- NOTE | 2024-09-09 19:40 | NUR ---
SHIFT SUMMARY PT A&0X4. PT ADMITTED DUE TO COPD EXAC. PT ON 3L OF 02 VIA N/C, PT REPORTS USING O2 AT BASE, PT REPORTS NO CHEST PAIN OR SOB. PT REPORTS GENERALIZED PAIN. PT CONT. OF URINE AND BM AND USES URINAL. PLAN FOR [facility] FACILITY, CASE MANAGEMENT INVOLVED IN COORDINATING. PT EATS ADEQUATE. PT ON TELE. PT IN BED, BED IN LOWEST POSITION, PT CALL LIGHT IN REACH AND CALLS APPROPRIATE. PT WORKED WITH PT AND OT TODAY, RECOMMENDED USING SLIDER BOARD. VSS. PT IMPULSIVE. BEDALARM ON. PT EDUCATED ON WEIGHT BEARING STATUS.
[2024-09-10 03:58] VITALS: BP 156/89
--- NOTE | 2024-09-10 04:50 | NUR ---
SHIFT SUMMARY; PATIENT SLEPT IN LONG INTERVALS. DID JUMP UP TO BS WITHOUT WAITING FOR BOOTS TO COVER FEET. HAD TO HAVE BM AND COULD NOT WAIT. TELE SR 81. O2/2-3L/NC TONIGHT.
[2024-09-10 05:09] LABS: BASOPHILS ABSOLUTE AUTO 0.04 K/mm3 (0.00-0.23); BASOPHILS PERCENT AUTO 1 % (0-2); EOSINOPHILS ABSOLUTE AUTO 0.49 K/mm3 (0.00-0.68); EOSINOPHILS PERCENT AUTO 7 % (0-6); Hematocrit 37.9 % (37.0-53.0); Hemoglobin 12.8 g/dL (13.5-17.5); IMMATURE GRAN ABSOLUTE AUTO 0.02 K/mm3 (0.00-0.10); IMMATURE GRAN PERCENT AUTO 0 % (0-1); LYMPHOCYTES ABSOLUTE AUTO 1.55 K/mm3 (0.84-5.20); LYMPHOCYTES PERCENT AUTO 21 % (21-46); MONOCYTES ABSOLUTE AUTO 0.54 K/mm3 (0.16-1.47); MONOCYTES PERCENT AUTO 7 % (4-13); Mean Corpuscular HGB 31.4 pg (26.0-34.0); Mean Corpuscular HGB Conc 33.8 g/dL (31.5-36.5); Mean Corpuscular Volume 93 fL (80-100); Mean Platelet Volume 9.1 fL (9.1-12.4); NEUTROPHILS ABSOLUTE AUTO 4.69 K/mm3 (1.96-9.15); NEUTROPHILS PERCENT AUTO 64 % (41-73); Platelet Count 218 K/mm3 (150-400); RDW Coefficient Variation 12.9 % (11.7-14.2); RDW Standard Deviation 44.2 fL (35.1-46.3); Red Blood Cell Count 4.07 M/mm3 (4.30-5.90); White Blood Cell Count 7.33 K/mm3 (4.00-11.30)
[2024-09-10 05:53] LABS: Bun/Creatinine Ratio 44.5 (12.0-20.0); Calcium, Blood 8.3 mg/dL (8.5-10.1); Creatinine, Blood 0.58 mg/dL (0.60-1.20); Potassium, Blood 3.9 mmol/L (3.5-5.5)
[2024-09-10 07:35] VITALS: BP 149/86
[2024-09-10] MEDS ORDERED: JUVEN PACKET1 EAC3 PO (09:42)
[2024-09-10] MEDS ORDERED: SODCHL1 PO (09:42)
[2024-09-10] MEDS ORDERED: DiphenhydrAMINE HCL/Zinc Acet Cream TOP PRN (10:35)
--- NOTE | 2024-09-10 13:04 | NUR ---
PT DISCHARGED WITH, WHEELCHAIR [facility]SP[facility] WITH [facility] LEFT AT 1245, CALLED RN DIANNE [phone] FOR REPORT. SENT PT'S HOME MED HOME WITH HIM (SORAFENIB) IN GREEN BAG, AMONGST BELONGINGS BAG.
== END 2024-09-10 12:47 ==
LOC: ER 08:48 → ERHOLD 08:49 → MEDS 08:49
PROVIDERS: Emergency Medicine; Internal Medicine; ADMIT Family Medicine
DX: J44.1 Chronic obstructive pulmonary disease with (acute) exacerbation (principal); J44.0 Chronic obstructive pulmonary disease with (acute) lower respiratory infection; J18.9 Pneumonia, unspecified organism; C79.9 Secondary malignant neoplasm of unspecified site; I47.10 Supraventricular tachycardia, unspecified; J96.11 Chronic respiratory failure with hypoxia; C22.0 Liver cell carcinoma; M17.11 Unilateral primary osteoarthritis, right knee; E87.1 Hypo-osmolality and hyponatremia; S90.822A Blister (nonthermal), left foot, initial encounter; S90.821A Blister (nonthermal), right foot, initial encounter; I10 Essential (primary) hypertension; E78.5 Hyperlipidemia, unspecified; K21.9 Gastro-esophageal reflux disease without esophagitis; Z87.891 Personal history of nicotine dependence; Z88.5 Allergy status to narcotic agent; Z88.8 Allergy status to other drugs, medicaments and biological substances; Z79.899 Other long term (current) drug therapy
CPT/HCPCS: 0241U; 36415; 71045; 73562-RT; 73620; 76770; 80048; 80053; 81001; 82550; 83690; 83735; 83880; 84145; 84295; 84439; 84443; 84481; 84484; 85025; 87086; 93005; 93010; 93306; 93922; 94640; 94644; 94664; 94760; 96361; 96365; 96366; 96367; 96372; 96374; 96375; 96376; 97110; 97110-CQ; 97162; 97165; 97530; 97530-CO; 97530-CQ; 97535; 97535-CO; 99285-25; A9270; G0378; J0456; J0696; J1650; J1885; J2919; J7050; J7120

== ENCOUNTER 2024-10-11 20:16 | Emergency (ER) | payer MEDICARE ==
[~2024-10-11] VITALS: Ht 160 cm; Wt 60.3 kg
[~2024-10-11 20:16] MED LIST changes: +JUVEN PACKET1 EAC3 PO; +SODCHL1 PO; +SORAFENIB200 MG PO
[2024-10-11] MEDS ORDERED: Acetaminophen 500 MG Tab PO ONE (22:30)
[2024-10-12] MEDS ORDERED: FentaNYL Citrate 50 MCG/ML 2 ML Injection IV ONE (03:35)
[2024-10-12] MEDS ORDERED: TraMADol HCl 50 MG Tab PO ONE ×2 (03:50→08:25)
[2024-10-12 04:07] VITALS: BP 137/91
== END 2024-10-12 09:09 | disposition home or self-care (01) ==
LOC: ER 20:16
DX: M54.50 Low back pain, unspecified (principal); C71.9 Malignant neoplasm of brain, unspecified; E27.9 Disorder of adrenal gland, unspecified; I10 Essential (primary) hypertension; K21.9 Gastro-esophageal reflux disease without esophagitis; E78.5 Hyperlipidemia, unspecified; J44.9 Chronic obstructive pulmonary disease, unspecified; Z87.891 Personal history of nicotine dependence; Z88.8 Allergy status to other drugs, medicaments and biological substances; Z88.5 Allergy status to narcotic agent; Z79.899 Other long term (current) drug therapy
CPT/HCPCS: 70450; 72131; 72170; 93005; 93010; 99285-25; A9270